=== PATIENT | male | born 1950 | race Caucasian/White ===

== ENCOUNTER → 2018-04-26 07:29 | Outpatient (CLI) | payer MEDICARE, OTHER, SELFPAY ==
[2018-04-26 09:41] LABS: Blood Urea Nitrogen 30 mg/dL (9-20); Calcium 9.3 mg/dL (8.4-10.2); Carbon Dioxide 24 mmol/L (22-32); Chloride 107 mmol/L (98-107); Estimated Glomerular Filt Rate > 60.0 mL/min (>60); Glucose 85 mg/dL (80-110); HEMOLYSIS < 15 (0-50); Potassium 4.3 mmol/L (3.4-5.1); Sodium 143 mmol/L (137-145)
[2018-04-26 11:43] LABS: Hemoglobin A1C% w Est Avg Glu 6.9 % (4.0-6.0)
== END ==
PROVIDERS: Family Provider Internal Medicine; PCP Internal Medicine; Visit Provider Internal Medicine
DX: E11.65 Type 2 diabetes mellitus with hyperglycemia (principal)
CPT/HCPCS: 36415; 80048; 83036

== ENCOUNTER → 2018-06-08 07:55 | Outpatient (CLI) | payer MEDICARE, OTHER, SELFPAY | PROVIDERS: Family Provider Internal Medicine; PCP Internal Medicine; Visit Provider Podiatrist | DX: Z01.818 Encounter for other preprocedural examination (principal) | CPT/HCPCS: 93005; 93010 ==

== ENCOUNTER 2018-06-18 14:07 | Day surgery (SDC) | payer MEDICARE, OTHER, SELFPAY ==
[2018-06-08 10:47] VITALS: BMI 28.7
[2018-06-18 14:26] VITALS: BP 155/79; PULSE 78; RESP 16; TEMP 36.8; O2SAT 99; BMI 28.7
[2018-06-18] MEDS: LACTATED RINGERS 1,000 ML 42 ML IV (14:47)
--- NOTE | 2018-06-18 15:54 | PM.PREOP ---
Pre-operative Note Interval Note Pre-op Check: Yes History & Physical Reviewed by Physician Changes: No
--- NOTE | 2018-06-18 16:31 | SUR.OPER ---
Supine on padded OR bed, head on pillow, arms secured on padded arm boards at <90 degrees abduction, right leg is under control of surgeon, left leg is taped over the blanket to the table; safety belt at thigh; bump under right hip.
[2018-06-18] MEDS: CEFAZOLIN 1 GM VIAL 2 GM IV (16:49)
[2018-06-18] MEDS: BUPIVACAINE 0.5% (PF) VIAL 30 ML INJ (16:51)
[2018-06-18] MEDS: LIDOCAINE 1% W/EPI INJ 4 ML INJ (16:52)
[2018-06-18 17:18] VITALS: BP 111/72; PULSE 82; RESP 14; TEMP 36.3; O2SAT 96
[2018-06-18 17:28] VITALS: BP 130/84; PULSE 71; RESP 14; O2SAT 98
--- NOTE | 2018-06-18 17:30 | P.OP_ITS ---
Operative Date/Time/Diagnoses Date of procedure: 06/18/18 Time of procedure: 17:24 Pre-op diagnosis: Right 2nd toe hardware bent , possible bone infection prominent 1st ray hardware Post-op diagnosis: same Procedure & Clinicians Procedure: Right 2nd toe hardware removal with right 2nd toe bone biopsy and right 1st metatarsal hardware removal x2 Same procedure as scheduled: Yes Surgeon: Zuleika Leigh Click Yes if Unassisted: Yes Anesthesia Type: MAC +/- Operative Notes Closure Type: primary Specimen(s): other (Bone biopsy 2nd toe distal phalanx) Estimated Blood Loss (mL): 10 Blood products transfused: none Procedure in detail: The patient was brought to the operating room and placed on the operative table in supine position. After induction of anesthesia the foot was prepped and draped in the usual aseptic manner the tourniquet was inflated. After checking for anesthesia and incision was made distally at the 2nd toe in the area of the prominent screw head. The screw head was immediately seen no purulent discharge or necrosis was noted. Using a forceps we were able to remove the screw in total. This was passed from the field. Bone biopsy was taken from the distal phalanx of the 2nd toe. The area was irrigated with copious amounts of normal sterile saline. Incision was made over the dorsal 1st metatarsal head. This was deepened through subcutaneous tissues being careful to identify and retract all vital neural and vascular structures. All bleeders were cauterized and ligated as necessary. Two prominent screw heads were noted and easily removed in total. These were passed from the table. The area was irrigated with copious amounts of normal sterile saline. The tourniquet was deflated and a prompt hyperemic response was seen to the foot. Subcutaneous closure on the 1st metatarsal head with Vicryl and nylon was used for the skin on both the 1st and 2nd. A sterile lightly compressive dressing was placed on the foot and use transferred the PACU with vital signs stable. Complications: none Condition: stable Disposition: PACU Plan for aftercare: Following a period of postoperative monitoring the patient be discharged home on written and oral postoperative instructions including keeping the dressing dry and intact avoiding significant ambulation to the foot , elevating the foot when seated at home. DVT prevention techniques have been reviewed.
== END 2018-06-18 17:41 | disposition home or self-care (01) ==
LOC: OR 14:07 → AC 14:09
PROVIDERS: Family Provider Internal Medicine; PCP Internal Medicine; Visit Provider Podiatrist
PROC: (CPT 20240; principal; 2018-06-18 15:15)
DX: T84.9XXA Unspecified complication of internal orthopedic prosthetic device, implant and graft, initial encounter (principal); E11.9 Type 2 diabetes mellitus without complications; Z79.84 Long term (current) use of oral hypoglycemic drugs
CPT/HCPCS: 20240; 20670; 20680; 87070; 87075; 87077; 87147; 87205; J0690; J2250; J2704; J3010

== ENCOUNTER → 2018-07-29 07:33 | Outpatient (CLI) | payer MEDICARE, OTHER, SELFPAY ==
[2018-07-29 09:16] LABS: Hemoglobin A1C% w Est Avg Glu 6.9 % (4.0-6.0)
[2018-07-29 09:53] LABS: BUN Creatinine Ratio 23.1 (6-22); Blood Urea Nitrogen 30 mg/dL (9-20); Calcium 9.5 mg/dL (8.4-10.2); Carbon Dioxide 27 mmol/L (22-32); Chloride 105 mmol/L (98-107); Estimated Glomerular Filt Rate 55.4 mL/min (>60); Glucose 141 mg/dL (80-110); HEMOLYSIS < 15 (0-50); Sodium 144 mmol/L (137-145)
== END ==
PROVIDERS: PCP Internal Medicine; Visit Provider Internal Medicine
DX: E11.65 Type 2 diabetes mellitus with hyperglycemia (principal)
CPT/HCPCS: 36415; 80048; 83036

== ENCOUNTER → 2019-01-27 07:23 | Outpatient (CLI) | payer MEDICARE, OTHER, SELFPAY ==
[2019-01-27 08:34] LABS: Hemoglobin A1C% w Est Avg Glu 7.3 % (4.0-6.0)
[2019-01-27 08:38] LABS: Alanine Aminotransferase 27 IU/L (21-72); Albumin 4.4 g/dL (3.5-5.0); Albumin Globulin Ratio 1.5 (1.0-2.8); Alkaline Phosphatase 88 U/L (38-126); Aspartate Aminotransferase 17 IU/L (17-59); Bilirubin Total 0.4 mg/dL (0.2-1.3); Blood Urea Nitrogen 28 mg/dL (9-20); Calcium 9.1 mg/dL (8.4-10.2); Carbon Dioxide 24 mmol/L (22-32); Chloride 106 mmol/L (98-107); Estimated Glomerular Filt Rate 50.7 mL/min (>60); Glucose 104 mg/dL (80-110); HEMOLYSIS < 15 (0-50); Potassium 4.7 mmol/L (3.4-5.1); Sodium 141 mmol/L (137-145); Total Protein 7.4 g/dL (6.3-8.2)
[2019-01-27 09:02] LABS: Prostate Specific Antigen Scrn 3.11 ng/mL (0.1-4.0)
== END ==
PROVIDERS: PCP Internal Medicine; Visit Provider Internal Medicine
DX: E11.9 Type 2 diabetes mellitus without complications (principal); E78.5 Hyperlipidemia, unspecified; Z12.5 Encounter for screening for malignant neoplasm of prostate
CPT/HCPCS: 80053; 83036; G0103

== ENCOUNTER 2019-04-18 06:31 | Day surgery (SDC) | payer MEDICARE, OTHER, SELFPAY ==
--- NOTE | 2019-04-18 | PATH_ITS ---
[facility] Accession Number: [id number] . 01 Material submitted: . PART A: colon - RIGHT COLON POLYP PART B: colon - LEFT COLON POLYP . 02 Diagnosis: A. Right Colon, Polyp: Tubular adenoma. . B. Left Colon, Polyp: Colonic mucosa with no diagnostic abnormality, consistent with polypoid redundancy. Negative for serrated lesion, dysplasia or malignancy. MRV/04/19/2019 . 02 Electronically signed: . Edil Aviles MD, PhD, Pathologist NPI- [id number] . 01 Gross description: . Part A: RIGHT COLON POLYP: Received in formalin is 1 fragment(s) of cobos, soft tissue measuring 0.3 x 0.2 x 0.2 cm which is entirely submitted and submitted entirely in 1 cassette(s) Part B: LEFT COLON POLYP: Received in formalin are 2 fragment(s) of cobos, soft tissue measuring 0.1 x 0.1 x 0.1 cm to 0.3 x 0.2 x 0.2 cm which is entirely submitted and submitted entirely in 1 cassette(s) /DMC /DMC . 02 Pathologist provided ICD-10: D12.6, K63.5 . 02 CPT . 616227, 666634 Performed at: 01 [facility] [address], [place], [place] [id number] MD German Lozada MD Phone: [phone] Performed at: 02 [facility] [address] [place], [place] [id number] MD Oxana Oropeza MD Phone: [phone]
[2019-04-18 07:11] VITALS: BMI 28.5
[2019-04-18 07:22] VITALS: BP 119/72; PULSE 102; RESP 16; TEMP 36.8; O2SAT 98
[2019-04-18] MEDS: SODIUM CHLORIDE 0.9% 1,000 ML 200 ML IV (07:27)
--- NOTE | 2019-04-18 07:28 | P.HP_ITS ---
History of Present Illness Date Patient Seen: 04/18/19 Time Patient Seen: 07:32 Chief complaint: [id number] Narrative: 68yo M referred for surveillance colonoscopy. Has history of polyps, none seen at last scope in 2003, however. Scope prior to that resulted in a perforation after a polypectomy and a surgery with partial colectomy per patient; the injury was in his cecum. Prior to that, he had had surgery for excision of a Meckel's and had a post op hemorrhage complication. Has had ortho surgeries with no bleeding issues but says he is prone to waking up during procedures. No family history of CRC and no concerning symptoms in patient. Patient History Medical History Type 2 diabetes mellitus without complication (Chronic) Essential hypertension (Chronic) Hyperlipidemia (Chronic) GERD (gastroesophageal reflux disease) (Chronic) Dorsalgia (Chronic) Type 2 diabetes mellitus with hyperglycemia (Chronic) H/O adenomatous polyp of colon (Inactive) Arthritis (Chronic) Chronic back pain (Chronic) Depression (Resolved) Peptic ulcer disease (Resolved) Surgical History Anesthesia (Inactive) H/O toe surgery (Inactive) S/P ACL reconstruction (Inactive) Status post appendectomy (Inactive) Status post cholecystectomy (Inactive) Status post colectomy (Inactive) Family History Father Diabetes mellitus Hypertension Mother Diabetes mellitus Social History marital status: number of children: 2 household members: spouse lives independently: Yes caregiver/support person: No housing: house pets and animals: Yes education level: other (Bachelors degree) occupational status: other (Retired) Previous occupational history: Aircraft inspecter travel history: recent ([place]) leisure activities: fishing and other ([place], collecting 100$ bill) Smoking Status: Never smoker Tobacco: How many years used: 0 quit status: quit date established (Never started) second hand exposure: Yes (Younger in life) alcohol intake: never substance use type: does not use Family & Social History Family History Father Diabetes mellitus Hypertension Mother Diabetes mellitus Social History: household members spouse lives independently Yes caregiver/support person No Tobacco & Substance use: Smoking Status Never smoker alcohol intake never Substance Use Type does not use Meds Home Medications Medication Instructions Recorded Confirmed Type Precision Xtra Test Strips #250 each 08/02/18 01/31/19 Rx aspirin 81 mg tablet,delayed 81 mg PO QDAY #90 tab 08/31/18 04/18/19 Rx release atorvastatin 20 mg tablet 20 mg PO QDAY #90 tab 08/31/18 04/18/19 Rx lisinopril 10 mg tablet 10 mg PO QDAY #90 tab 08/31/18 04/18/19 Rx metformin ER 1,000 mg 1,000 mg PO BID #180 tab 08/31/18 04/18/19 Rx tablet,extended release 24hr glipizide ER 5 mg tablet, extended 5 mg PO BID #180 tab 04/05/19 04/18/19 Rx release 24 hr Allergies Allergy/AdvReac Type Severity Reaction Status Date / Time metronidazole [METRONIDAZOLE] AdvReac Intermediate nausea Verified 04/18/19 07:09 Review of Systems Constitutional Constitutional: Reports as per HPI Exam Vital Signs (past 8 hours): - 04/18/19 07:22 Temperature 98.2 F Pulse Rate 102 H Respiratory Rate 16 Blood Pressure 119/72 Pulse Oximetry 98 Oxygen Delivery Method Room Air Narrative Exam Narrative: AAO, NAD, male of healthy weight EOMI, MMM, no scleral icterus unlabored RA soft, nt/nd MAEW visible skin dry and intact Assessment & Plan (1) Screening for colorectal cancer: Current visit: Yes Status: Acute Assessment & Plan narrative: - plan for surveillance colonoscopy --> all R/B/A discussed and pt wishes to proceed
[2019-04-18] MEDS: MIDAZOLAM 5 MG/5 ML VIAL IV (08:05)
[2019-04-18] MEDS: fentaNYL 250 MCG/5 ML INJ IV (08:05)
--- NOTE | 2019-04-18 08:13 | PM.OP.ENDO ---
Operative Date/Time/Diagnoses Date of procedure: 04/18/19 Time of procedure: 08:13 Pre-op diagnosis: History of colon polyps Post-op diagnosis: same Procedure & Clinicians Study performed: Surveillance Colonoscopy Same procedure as scheduled: Yes Indications: 68yo M with history of colon polyps, no family history or current symptoms. Did have a perforation at last scope so has delayed follow up. Surgeon: Yoli Hallman Procedure Notes SCOAP/Timeout: 743 Procedure in detail: After obtaining informed consent, the patient was brought to the GI suite and placed in the left lateral decubitus position on the examination table. After placement of appropriate monitors, the patient was given incremental doses of Versed and Fentanyl until an appropriate level of sedation was achieved. A time out was held per SCOAP protocol. A digital rectal examination was performed and did not reveal any masses or obstructing lesions. The colonoscope was gently passed into the patient's anus and the entire colon navigated to the level of the cecum with minimal difficulty. Prep was adequate. Once in the cecum, the scope was slowly withdrawn being sure to go before and beyond all mucosal folds and prominences as able to get a thorough examination. A tiny hyperplastic appearing polyp is noted in the right colon and is removed with cold forceps for biopsy. Another mass is noted in the left colon around 55cm, it is smooth and bulbous and appears submucosal rather than a polyp; it measures 1.5-2cm in diameter. Given the wide base and benign appearance, biopsies with cold forceps are taken. At the level of the rectal vault, the scope was retroflexed and the internal anal canal was examined. The scope was straightened and air aspirated from the colon. The instrument was removed from the patient's body and the procedure was concluded. The patient was allowed to awaken from sedation without difficulty and taken to the post-anesthesia care unit in good condition. Scope withdrawal time: 13 min Sedation minutes: 26 Findings: polyp Impression: 1. Right colon polyp- appears hyperplastic; biopsy sent 2. Left colon mass- appears benign, 1-2cm and smooth; biopsy sent Recommendations: Colonscopy in 5 years (pending path ) Follow up: weeks Disposition: PACU
[2019-04-18 08:17] VITALS: BP 116/75; PULSE 93; RESP 16; TEMP 36.3; O2SAT 99
[2019-04-18 08:28] VITALS: BP 111/75; PULSE 99; RESP 16; TEMP 36.7; O2SAT 95
--- NOTE | 2019-04-18 08:32 | SUR.PHASEII ---
Stable post op, awake on arrival so Phase 1 bypassed and pt went straight to phase 2.
--- NOTE | 2019-04-18 08:44 | SUR.PHASEII ---
Pt ready to go, dressed and left in stable condition.
== END 2019-04-18 08:45 | disposition home or self-care (01) ==
PROVIDERS: PCP Internal Medicine; Visit Provider Surgery
PROC: 0DJD8ZZ Inspection of Lower Intestinal Tract, Via Natural or Artificial Opening Endoscopic (ICD-10-PCS; CPT 45378; principal; 2019-04-18 07:45)
DX: Z86.010 Personal history of colon polyps (principal); E11.9 Type 2 diabetes mellitus without complications; I10 Essential (primary) hypertension; E78.5 Hyperlipidemia, unspecified; Z79.84 Long term (current) use of oral hypoglycemic drugs; D12.6 Benign neoplasm of colon, unspecified
CPT/HCPCS: 45380; 88305; 99152; J2250; J3010

== ENCOUNTER → 2019-04-28 07:45 | Outpatient (CLI) | payer MEDICARE, OTHER, SELFPAY ==
[2019-04-28 09:29] LABS: BUN Creatinine Ratio 20.8 (6-22); Blood Urea Nitrogen 27 mg/dL (9-20); Calcium 9.2 mg/dL (8.4-10.2); Carbon Dioxide 24 mmol/L (22-32); Chloride 109 mmol/L (98-107); Estimated Glomerular Filt Rate 55.2 mL/min (>60); Glucose 80 mg/dL (80-110); HEMOLYSIS < 15 (0-50); Potassium 5.1 mmol/L (3.4-5.1); Sodium 143 mmol/L (137-145)
== END ==
PROVIDERS: PCP Internal Medicine; Visit Provider Internal Medicine
DX: E11.65 Type 2 diabetes mellitus with hyperglycemia (principal)
CPT/HCPCS: 36415; 80048; 83036

== ENCOUNTER → 2019-06-08 13:00 | Outpatient (CLI) | payer MEDICARE, OTHER, SELFPAY ==
--- NOTE | 2019-06-08 | DI.MRI.S_ITS ---
PROCEDURE: MR LUMBAR SPINE WO CON INDICATIONS: LUMBAR SPINE PAIN TECHNIQUE: Noncontrast sagittal T1 spin echo and T2 fast echo, sagittal STIR, axial T1 and T2 fast spin echo through the lumbar spine. In cases with scoliosis, additional coronal T2 fast spin echo may be performed. COMPARISON: [facility], MR, L-SPINE WITHOUT CONTRAST, 03/15/2007, 7:09. FINDINGS: Image quality: Excellent. Alignment and Curvature: There is grade 1 anterolisthesis at the L5-S1 level. Associated bilateral pars defects are seen. Minimal retrolisthesis is seen at L2-L3, L4, and L4-L5. Bone Marrow: Marrow is of normal overall signal. Scattered foci are seen, which are hyperintense on T1-weighted and T2-weighted imaging, which are most consistent with benign vertebral body hemangiomas. No acute vertebral body compression fractures. Spinal Cord: Conus medullaris terminates at the T12-L1 level. Visualized cord demonstrates normal signal and size. Paraspinous Soft Tissues: No paravertebral masses. T12-L1: Normal appearance. L1-L2: Normal appearance. L2-L3: The disc height is well-preserved. Loss of disc signal is seen at this level. Mild to moderate disc bulge is seen. There is mild to moderate right-sided and mild left-sided neural foraminal narrowing seen. These imaging findings have progressed compared to the prior study. L3-L4: Mild loss of disc height is seen. Loss of disc signal is seen. Moderate disc bulge is seen, which is eccentric to the right. Mild to moderate facet hypertrophy is seen. Moderate bilateral neural foraminal narrowing is seen, right worse than left. Moderate central canal narrowing is seen. These imaging findings have progressed compared to the prior study. L4-L5: Moderate to severe loss of disc height and disc signal are seen. Reactive marrow endplate changes are seen, which demonstrate mixed T1 weighted and T2-weighted signal, and are attributed to a combination of edema and fatty metaplasia (Modic type I and Modic type II changes). Large prominent disc bulge is seen, which is eccentric to the left. There is at least moderate facet hypertrophy seen. Moderate to severe bilateral neural foraminal narrowing is seen, right worse than left. Moderate to severe central canal narrowing is seen at this level. These degenerative changes are mildly progressed compared to 2007. L5-S1: Moderate to severe loss of disc height and disc signal are seen. Moderate to prominent disc bulge is seen. Moderate to severe bilateral neural foraminal narrowing is seen, left worse than right, with associated nerve root impingement. Moderate central canal narrowing is seen. These degenerative changes are mildly progressed compared to 2007. IMPRESSION: Multiple levels of lumbar spine degenerative change are seen, which are most prominent at the L5-S1 level. The degenerative changes have progressed compared to 2007. Dictated by: Ross Samuels M.D. on 06/08/2019 at 14:53 Approved by: Ross Samuels M.D. on 06/08/2019 at 14:58
== END ==
PROVIDERS: Family Provider Internal Medicine; PCP Internal Medicine; Visit Provider Orthopaedic Surgery Orthopaedic Surgery of the Spine
DX: M54.5 Low back pain (principal); M47.817 Spondylosis without myelopathy or radiculopathy, lumbosacral region; M47.816 Spondylosis without myelopathy or radiculopathy, lumbar region
CPT/HCPCS: 72148

== ENCOUNTER → 2019-06-09 11:21 | Outpatient (CLI) | payer MEDICARE, OTHER, SELFPAY ==
--- NOTE | 2019-06-09 11:25 | DI.RAD.S_ITS ---
PROCEDURE: XR WRIST RT MIN 3V INDICATIONS: right wrist pain TECHNIQUE: 4 views of the wrist were acquired. COMPARISON: None. FINDINGS: Bones: No fractures or dislocations. No suspicious bony lesions. There are mild degenerative changes at the right first interphalangeal joint, right first metacarpal phalangeal joint, and right radiocarpal joint. There are moderate degenerative changes of the the right first carpometacarpal joint and the right rnuadyyr-wqrvbtnob-qwvlvbipf (STT) joint. Scaphoid view: Scaphoid appears intact. Soft tissues: No suspicious soft tissue calcifications. IMPRESSION: Mild/moderate degenerative changes of the right wrist as described above. No acute fracture or dislocation of the right wrist identified. Dictated by: Lopez Kendrick M.D. on 06/09/2019 at 12:08 Approved by: Lopez Kendrick M.D. on 06/09/2019 at 12:11
== END ==
PROVIDERS: PCP Internal Medicine; Visit Provider Internal Medicine
DX: M25.531 Pain in right wrist (principal)
CPT/HCPCS: 73110

== ENCOUNTER → 2019-07-21 09:05 | Outpatient (CLI) | payer MEDICARE, OTHER, SELFPAY ==
[2019-07-21 10:28] LABS: Hematocrit 36.9 % (41-53); Hemoglobin 12.6 g/dL (13.5-17.5); Mean Corpuscular HGB Conc 34.1 % (30-36); Mean Corpuscular Hemoglobin 30.7 PG (26-34); Mean Corpuscular Volume 89.9 fL (80-100); Platelet Count 209 X10^3/uL (150-400); Red Cell Distribution Width 13.5 % (11.6-14.8); White Blood Cell Count 6.2 X10^3/uL (4.5-11.0)
[2019-07-21 10:33] LABS: Add Manual Diff / Slide Review YES
[2019-07-21 10:42] LABS: Hemoglobin A1C% w Est Avg Glu 8.5 % (4.0-6.0)
[2019-07-21 10:45] LABS: BUN Creatinine Ratio 22.1 (6-22); Blood Urea Nitrogen 31 mg/dL (9-20); Calcium 9.7 mg/dL (8.4-10.2); Carbon Dioxide 24 mmol/L (22-32); Chloride 105 mmol/L (98-107); Estimated Glomerular Filt Rate 50.7 mL/min (>60); Glucose 128 mg/dL (80-110); HEMOLYSIS < 15 (0-50); Sodium 141 mmol/L (137-145)
[2019-07-21 10:53] LABS: Neutrophils Absolute Manual 3348 /uL (3000-5900); Total Cells Counted 100
[2019-07-21 10:54] LABS: RBC Morphology Normal Morphology
[2019-07-21 11:11] LABS: Potassium 5.5 mmol/L (3.4-5.1)
== END ==
PROVIDERS: PCP Internal Medicine; Visit Provider Orthopaedic Surgery Orthopaedic Surgery of the Spine
DX: R73.9 Hyperglycemia, unspecified (principal); Z01.818 Encounter for other preprocedural examination
CPT/HCPCS: 36415; 80048; 83036; 85025; 93005

== ENCOUNTER → 2019-08-09 07:47 | Outpatient (CLI) | payer MEDICARE, OTHER, SELFPAY ==
[2019-08-09 08:49] LABS: Add Manual Diff / Slide Review NO; Basophils Absolute Auto 0 /uL (0-100); Basophils Percent Auto 0.6 % (0-2); Eosinophils Absolute Auto 200 /uL (0-450); Eosinophils Percent Auto 3.4 % (2-4); Hematocrit 37.1 % (41-53); Hemoglobin 12.6 g/dL (13.5-17.5); Lymphocytes Absolute Auto 2000 /uL (1100-4500); Lymphocytes Percent Auto 28.4 % (25-40); Mean Corpuscular Hemoglobin 30.8 PG (26-34); Mean Corpuscular Volume 90.5 fL (80-100); Monocytes Absolute Auto 700 /uL (0-900); Monocytes Percent Auto 9.6 % (3-14); Neutrophils Absolute Auto 4000 /uL (1500-7000); Platelet Count 229 X10^3/uL (150-400); Red Cell Distribution Width 13.7 % (11.6-14.8); White Blood Cell Count 6.9 X10^3/uL (4.5-11.0)
[2019-08-09 09:15] LABS: BUN Creatinine Ratio 27.1 (6-22); Blood Urea Nitrogen 38 mg/dL (9-20); Calcium 9.2 mg/dL (8.4-10.2); Carbon Dioxide 22 mmol/L (22-32); Chloride 107 mmol/L (98-107); Estimated Glomerular Filt Rate 50.7 mL/min (>60); Glucose 89 mg/dL (80-110); HEMOLYSIS < 15 (0-50); Potassium 4.6 mmol/L (3.4-5.1); Sodium 141 mmol/L (137-145)
[2019-08-09 09:40] LABS: Hemoglobin A1C% w Est Avg Glu 8.1 % (4.0-6.0)
== END ==
PROVIDERS: PCP Internal Medicine; Visit Provider Orthopaedic Surgery Orthopaedic Surgery of the Spine
DX: Z01.818 Encounter for other preprocedural examination (principal)
CPT/HCPCS: 36415; 80048; 83036; 85025

== ENCOUNTER 2019-08-15 06:06 | Inpatient (IN) | payer MEDICARE, OTHER, SELFPAY ==
[2019-08-03 08:55] VITALS: BMI 28.4
[2019-08-15] VITALS (16 sets, daily range): BP systolic 92–144; BP diastolic 44–82; PULSE 60–111; RESP 10–21; TEMP 35.7–36.8; O2SAT 94–99; BMI 27.5
--- NOTE | 2019-08-15 | DI.RAD.S_ITS ---
PROCEDURE: XR LUMBAR SPINE 2-3V INDICATIONS: L4-5, L5-S1 TLIF TECHNIQUE: 2 intraoperative fluoroscopic views of the lumbar spine were acquired. COMPARISON: None. FINDINGS: Spot fluoroscopic images demonstrate a posterior fixation and discectomy from L4-S1. IMPRESSION: Spot fluoroscopic images of the lumbosacral spine fusion. Dictated by: Zulema Calixto M.D. on 08/15/2019 at 12:25 Approved by: Zulema Calixto M.D. on 08/15/2019 at 12:54
--- NOTE | 2019-08-15 07:39 | PM.PREOP ---
Pre-operative Note Interval Note History & Physical reviewed/Exam performed by Physician: Yes Changes to H&P: No
[2019-08-15] MEDS: CEFAZOLIN 2 GM/100 ML FROZ.PIGGY IV ×2 (08:10→16:47)
[2019-08-15] MEDS: LACTATED RINGERS 1,000 ML 42 ML IV ×2 (08:13→10:55)
--- NOTE | 2019-08-15 08:41 | SUR.OPER ---
Prone on spine table, head in foam head support, padded chest and pelvic supports, gel pad at knees, lower legs supported by pillows; nipples, genitalia and toes free of pressure, arms secured on foam padded arm boards at <90 degrees abduction. Tape over blanket at thigh secured to table.
[2019-08-15] MEDS: BUPIVACAINE 0.25% W/ EPI 30 ML VIAL INJ (08:48)
[2019-08-15] MEDS: BUPIVACAINE LIPOSOME 266 MG/20 ML VIAL INJ (08:49)
[2019-08-15] MEDS: ACETAMINOPHEN IV 1,000 MG/100 ML VIAL 400 MG IV (11:28)
--- NOTE | 2019-08-15 11:53 | P.OP_ITS ---
Operative Date/Time/Diagnoses Date of procedure: 08/15/19 Time of procedure: 07:53 Pre-op diagnosis: 1. L4-5, L5-S1 spondylolisthesis 2. L4-5, L5-S1 spinal stenosis Post-op diagnosis: same Procedure & Clinicians Procedure: 1. L4-5, L5-S1 Postero-lateral and posterior interbody fusion 2. L4-5, L5-S1 interbody cage placement. 3. L4-5, L5-S1 decompressive laminectomy with bilateral facetecomies 4. L4-5, L5-S1 Posterior segmental instrumentation 5. [place] of bone marrow from iliac crest 6. Utilization of microsurgical technique and operating microscope Same procedure as scheduled: Yes Indications: Patient has been having chronic back pain and worsening lumbar radiculopathy. Patient failed multiple conservative management with worsening pain weakness and numbness in her lower extremity. Patient has been having difficulty performing activity of daily living. After discussing risks benefits of treatment options, patient elected proceed with surgery. Surgeon: Ama Merlos Friction Paint Machine Tender: Maria Luz Roberson'Brien Click Yes if Unassisted: No Anesthesia Type: General Operative Notes Closure Type: primary Specimen(s): none sent Prosthetic devices, grafts, tissues, transplants, or devices: Globus revolve screws, Rise cages Applied: catheter Estimated Blood Loss (mL): 50 Blood products transfused: none Procedure in detail: Patient was seen in the preoperative area. Risks and benefits of the surgery was discussed with the patient. Informed consent was obtained from the patient and placed in the chart. Surgical site was marked. Patient was taken to the operative room. General anesthesia was administered. Prophylactic antibiotic was given to the patient less than 30 min before the incision was made. Patient was placed into a prone position on the Justin table. Patient's back was then prepped and draped in the sterile fashion. Time- out was performed at this time. Using AP and lateral C-arm imaging the interval between L4-S1 was identified and marked on patient's back. A 2 inch incision 2 in from midline was made on the left side first. The fascia was incised in line with skin incision. Globus MARS retractors was placed inside the incision and docked onto the L4 and L5 lamina. Using microsurgical technique and operating microscope, a L4 and L5 laminectomy and L4-5 L5-S1 facetectomy was performed using a Kerrison rongeur. During the process of decompression more than 75% of bilateral L4-5 L5-S1 facets were removed in order to decompress the spinal canal and the lateral recess. The L4- 5 L5-S1 level was grossly unstable after the decompression was completed and requiring the fusion procedure. Patient was found have severe central and foramen stenosis at both levels which were fully decompressed after the laminectomy and facetectomy was completed. The disc space at L4-5, L5-S1 was identified. And a total diskectomy was performed at L4-5, L5-S1 level. The endplates were decorticated using a rasp and shaver. The total diskectomy and decortication was performed at L4-5, L5-S1 level in order to to accomplish a L4- 5, L5-S1 fusion. The local bone from the laminectomy and facetectomy was saved for local bone grafting. After the total diskectomy and decortication was completed, Bio4 bone graft material was combined with local bone that was harvested earlier. At this time, a separate skin is incision was made over the iliac crest. A Jamshidi needle was inserted into the iliac crest through a separate skin incision. 5 cc of bone marrow aspiration was obtained through the separate skin incision using a Jamshidi needle from the iliac crest. The bone marrow aspiration was combined with local bone and the Bio4 bone grafting material. The bone grafting material was placed into the L4-5, L5-S1 interbody space along with two cages, one expandable cage at each level. The cages were expanded to their maximum height using the torque limiting screwdriver. At this time a mirror image incision was made on the right side. The fascia was incised in line with the skin incision. Globus MARS retractor was inserted and docked onto the L4-5, L5-S1 posterolateral gutter. Using the power drill, posterior-lateral decortication was performed at L4-5, L5-S1 level until bleedin g cortical bone was identified. The remaining bone grafting material was placed into the L4-5 L5-S1 posterior lateral gutter he order to accomplish posterolateral fusion at the L4-5 L5-S1 levels. Using the double C-arm technique, pedicle screws were placed into the L4, L5, S1 pedicles bilaterally. This was done by placing the Jamshidi needle into the pedicles, then placing the guidewires over the Jamshidi needle, and finally placing the cannulated screws over the guidewires bilaterally. After the pedicle screws were placed, 2 titanium rods was locked into the heads of the pedicle screws using locking caps and torque limiting screwdriver. Total 6 pedicles screws were placed. Thread energy conservation specialist was used to reduce patient's spondylolisthesis at both levels a perfect reduction and good purchase was obtained on all levels. After all the hardware was placed, and confirmed with AP and lateral C-arm imaging, the wound was then irrigated with sterile normal saline and packed with Ray-Jalen gauze for 3 min to accomplish hemostasis. After the gauze was removed the deep fascia was closed with #1 Vicryl suture. The subcutaneous layer was closed with 2-0 Vicryl. The skin was closed with skin jim. Patient tolerated the procedure well. There were no complications. Complications: none Post-operative Condition: stable Disposition: PACU Plan for aftercare: Admit to inpatient hospital
[2019-08-15] MEDS: LORazepam 2 MG/ML INJ 0.5 MG IV (12:16)
[2019-08-15] MEDS: HYDROMORPHONE 2 MG INJ 0.5 MG IV (12:24)
--- NOTE | 2019-08-15 12:32 | SUR.PHASEI ---
Patient arrived in pACU restless, trying to turn to position of comfort. rx by Dr. Marquez x2 for pain. Back dressing CDI. Good strength displayed by moving freely in bed. Responds to voice, See Mar
--- NOTE | 2019-08-15 13:02 | SUR.PHASEI ---
report called to floor.
--- NOTE | 2019-08-15 13:21 | SUR.PHASEI ---
1307 Has declined PO intake several times, states that he's doing 'great'. Report was called to the floor and pt ready for transfer. Take to room 218, bed down and locked, call light within reach. Glasses to counter, clothing bad to closet. SCDs on. When AC nurse asked him how he was doing, he stated perfect. Also stated that he didn't need anything more prior to my departure. VSS. Stable. flat affect, but responses are appropriate.
[2019-08-15] MEDS: HYDROMORPHONE 1 MG INJ 0.5 MG IV (14:19)
[2019-08-15] MEDS: SODIUM CHLORIDE 0.9% 1,000 ML 100 ML IV (14:19)
--- NOTE | 2019-08-15 14:26 | PC.NURSE ---
Patient axox3, vss, dressing intact to back. Moving all extremities. IV fluids infusing as ordered. Denies n/v, but declines food or drinks at this time. Sipping on water. Patient sleepy but easily arousable, medicated with dialudid 0.5mg IV as ordered for 9/10 surgical site incision pain. Isbell in place draining clear yellow urine. call light within reach.
[2019-08-15] MEDS: OXYCODONE IR 5 MG TABLET 10 MG PO ×3 (16:44→22:32)
[2019-08-15] MEDS: HYDROMORPHONE 0.5 MG INJ IV (17:05)
[2019-08-15] MEDS: DOCUSATE 100 MG CAPSULE PO (19:53)
[2019-08-15] MEDS: SENNOSIDES 8.6 MG TABLET 17.2 MG PO (19:53)
[2019-08-15] MEDS: glipiZIDE XL 5 MG TAB PO (19:53)
[2019-08-15] MEDS: METFORMIN XR 500 MG TABLET 1000 MG PO (19:53)
[2019-08-15] MEDS: hydrOXYzine pamoate 25 MG CAPSULE PO (22:32)
[2019-08-16] MEDS: CEFAZOLIN 2 GM/100 ML FROZ.PIGGY IV (00:05)
[2019-08-16] MEDS: SODIUM CHLORIDE 0.9% 1,000 ML 100 ML IV (00:05)
[2019-08-16] MEDS: HYDROMORPHONE 0.5 MG INJ IV ×3 (00:07→09:54)
[2019-08-16] MEDS: OXYCODONE IR 5 MG TABLET 10 MG PO ×3 (03:14→09:53)
[2019-08-16] MEDS: hydrOXYzine pamoate 25 MG CAPSULE PO ×2 (03:14→07:38)
[2019-08-16 03:19] VITALS: BP 146/56; PULSE 88; RESP 16; TEMP 37.3; O2SAT 96
[2019-08-16 05:55] LABS: Hematocrit 31.7 % (41-53)
[2019-08-16 07:45] VITALS: BP 137/70; PULSE 126; RESP 18; TEMP 37.9; O2SAT 95
[2019-08-16] MEDS: METFORMIN XR 500 MG TABLET 1000 MG PO ×2 (09:09→20:59)
[2019-08-16 09:10] VITALS: BP 137/70; PULSE 126
[2019-08-16] MEDS: LISINOPRIL 10 MG TABLET PO (09:10)
[2019-08-16] MEDS: ATORVASTATIN 20 MG TABLET PO (09:11)
[2019-08-16] MEDS: DOCUSATE 100 MG CAPSULE PO ×2 (09:11→20:57)
[2019-08-16] MEDS: glipiZIDE XL 5 MG TAB PO ×2 (09:11→20:59)
[2019-08-16] MEDS: SODIUM CHLORIDE 0.9% FLUSH 10 ML IV ×2 (09:20→20:59)
--- NOTE | 2019-08-16 09:42 | PC.NURSE ---
Addendum entered by Pam Bentley R.N. 08/16/19 14:31: pain 5/10, pt states is tolerable, did not want further PRn at this time. Talked with pt about staying ahead of pain and maybe having Q4 hr intervals instead and to report to staff his pain level. Urinary catheter removed at 1430 without difficulty, pt agreed with removal. Addendum entered by Pam Bentley R.N. 08/16/19 12:51: Around 1215, JOSEP Mandel updated also with HR tachycardia in the one teens up to 126. And Temp this AM 100.3 and reassessment was 99.8. Pain now 6/10. Addendum entered by Pam Bentley R.N. 08/16/19 11:51: Dilaudid 4mg po prn given at 1125 and IV Decadron 6mg X1 dose at 1135. Update given to JOSEP Mandel around 1146. PA will see pt around 1200. Addendum entered by Pam Bentley R.N. 08/16/19 11:21: No response from fax, Another RN had called Ortho office with no response. Called to surgery, Dr. Sanchez and Dr. Mar currently in surgery with PA's. Around 1115, Called JOSEP Nieto, currently in clinic. Pain management discussed, new orders rec'd. Original Note: Day Shift- Pt reported 10/10 deep aching to lower back around incision site. Lower back dressing CDI, no redness exceeding dressing. Denies nausea. Pain management plan discussed. PRN Vistaril and IV Dilaudid given at 0745 with little effect. pain decreased to 9/10. Pt turning himself in bed from side to side, reminded of log rolling, no twisting at waist, and placing a pillow between legs while on his side. Offered pt to reposition into a chair and pt wanted to try. 1 PA using walker and gait belt, pt reminded of slow to rise movement. Ambulated from bed to window, did a small loop and then settled into chair with call light. Attempted ice behind lower back and pt did not like, ice pack removed, pillow placed behind mid and upper back and head. BLE elevated on pillows. IVF D/C per order, pt tolerating food and fluids. Fax sent to Surgery at [phone] regarding changing pain management plan.
[2019-08-16] MEDS: ACETAMINOPHEN 325 MG TABLET 650 MG PO ×2 (09:54→16:49)
[2019-08-16] MEDS: HYDROMORPHONE 4 MG TABLET PO ×2 (11:26→16:49)
[2019-08-16] MEDS: DEXAMETHASONE 10 MG/ML VIAL 6 MG IV (11:36)
[2019-08-16 12:00] VITALS: BP 101/51; PULSE 116; RESP 18; TEMP 37.7; O2SAT 96
--- NOTE | 2019-08-16 13:41 | PT.IIE ---
Current Diagnoses Spondylolisthesis, lumbosacral region (08/15/19) Spinal stenosis, lumbar region with neurogenic claudication (08/15/19) Surgery Performed Operation Date: 08/15/19 07:45 Actual Procedures p L4-5, L5-S1 TLIF with posterior instrumentation(Not Applicable) - Ama Merlos MD Surgical History (Last Updated 08/03/19 @ 09:11 by Rica Knapp RN) Anesthesia (Inactive) H/O toe surgery (Inactive) S/P ACL reconstruction (Inactive) Status post appendectomy (Inactive) Status post cholecystectomy (Inactive) Status post colectomy (Inactive) Medical History (Last Reviewed 04/18/19 @ 07:27 by Yoli Hallman MD) Arthritis (Chronic) Chronic back pain (Chronic) Depression (Resolved) Dorsalgia (Chronic) Essential hypertension (Chronic) GERD (gastroesophageal reflux disease) (Chronic) H/O adenomatous polyp of colon (Inactive) Hyperlipidemia (Chronic) Peptic ulcer disease (Resolved) Type 2 diabetes mellitus with hyperglycemia (Chronic) Physical Therapy Inpatient Evaluation/Re-Eval M1 PT/OT-IP Prior Functional Status Start: 08/16/19 08:57 Freq: NEEDED Status: Active Protocol: Document 08/16/19 13:09 AW (Rec: 08/16/19 13:41 AW [id number]) Medical Review Prior Functional Status Medical History Reviewed Yes Diet/Fluid Consistency Regular Communication Able to make needs known Mobility and Gait Pt was mod independent with single point cane, limited in ambulation distance due to pain. Activities of Daily Living and IADL's Independent Social History Household Members spouse Living Arrangements House Number of Floors (Floors) One Floor Number of Stairs To Enter/Railing? 2 HERIBERTO without rail. Indoors: 2 steps down to bedroom without rail. 2 steps down to living room without rail. Patient able to use guest room with level entrance if needed. Home Environment Standard Height Toilet Home Equipment Four Wheel Walker,Straight Cane,Shower Seat without Backrest,Hand Held Shower Employment Status Retired Additional Social History Comment Pt lives with his spouse who is able to provide light assist as needed. M2 PT-IP Current Condition Start: 08/16/19 08:57 Freq: NEEDED Status: Active Protocol: Document 08/16/19 13:09 AW (Rec: 08/16/19 13:41 AW [id number]) Physical Therapy Current Condition Current Condition Evaluation Date 08/16/19 Treatment Diagnosis s/p L4-L5/L5-S1 TLIF, impaired mobility Onset Date 08/15/19 Precautions Lumbar Precautions Log Roll,No Twisting,Limit Bending,Lifting Restriction of 10 lbs,Gait Belt above Incisional Area Weight Bearing Status Weight Bearing Status Full Weight Bearing M3 PT-IP Subjective Start: 08/16/19 08:57 Freq: NEEDED Status: Active Protocol: Document 08/16/19 13:09 AW (Rec: 08/16/19 13:41 AW [id number]) Subjective Physical Therapy Visit Type Visit Start Time 12:40 Visit Stop Time 13:06 Total Visit Minutes 26 Number of DIE MAKER APPRENTICE Visits 0 Physical Therapy Visit Comments Patient Comments Pt has 6/10 pain but has been looking forward to getting up. Patient Goals Pt wants to discharge home with his Therapy Pain Assessment Pain When Pain Assessed During Mobility Pain Present Pain Present Pain Reported Location right thumb/forearm Intensity 6 Scale Used Numeric (1 - 10) Description Burning Pain Management Techniques Timing of Activity with Medications lower back Intensity 6 Scale Used 6/10 at rest; no increase with mobility Pain Management Techniques Apply Cold,Re-positioning, Timing of Activity with Medications M4 PT-IP Mobility and Gait Start: 08/16/19 08:57 Freq: NEEDED Status: Active Protocol: Document 08/16/19 13:09 AW (Rec: 08/16/19 13:41 AW [id number]) PT-Bed Mobility Assessment Rolling Type of Rolling Log Rolling Level of Assist Contact Guard Assistance Supine to Sit Supine to Sit Contact Guard Assistance Scooting Scooting to Edge of Bed Standby Assistance PT-Transfer Assessment Sit to and From Stand Sit to and from Stand Contact Guard Assistance Equipment Transfer Assistive Device Bed Rail,Front Wheeled Walker Orthotic/Prosthetic Devices or Brace: No Transfers Transfer Destination Chair Transfer Technique pt ambulated with FWW Transfer Ability Level of Assist Contact Guard Assistance Comments Mobility Comments Pt presents as drowsy as a result of pain medication, necessitating increased level of assist. Gait Assessment Gait Gait Assistance Required: Standby Assistance,Contact Guard Assist Distance (Feet) 200 Able to Maintain Weight Bearing Status Yes During Gait Assistive Devices Assistive Device Gait Belt,Front Wheeled Walker Orthotic/Prosthetic Devices or Brace: No Gait Deviations General Gait Pattern Antalgic,Decreased Feet Clearance,Flexed Trunk Factors Limiting Gait Function Factors Limiting Gait Function Decreased Activity Tolerance, Decreased Sensation,Decreased Strength,Pain,Poor Safety Awareness Comments Gait Comments Pt ambulated using FWW CGA/SBA and frequent cues for hip extension to correct flexed posture. With increased distance, pt's alertness increased, allowing for decreased level of assist (SBA vs CGA). PT-Balance Assessment Sitting Balance and Reactions Static Sitting Balance Ability Good Dynamic Sitting Balance Ability Good Standing Balance and Reactions Static Standing Balance Ability Good Dynamic Standing Balance Ability Good Device Used FWW M5 PT-IP Objective Assessments Start: 08/16/19 08:57 Freq: NEEDED Status: Active Protocol: Document 08/16/19 13:09 AW (Rec: 08/16/19 13:41 AW [id number]) Orientation Orientation/Cognition Level of Alertness Confusional State Orientation Name,Month,Place,Situation Safety Awareness Decreased Safety Awareness Memory Description No Deficits Noted Comments Decreased safety awareness secondary to mental state affected by pain meds. Gross Range of Motion Upper Extremity ROM Assessment Left Impaired Impairments limited shoulder flexion secondary to remote grade 3 separation Lower Extremity ROM Assessment Within Functional Limits Strength Upper Extremity Strength Assessment Within Functional Limits Lower Extremity Strength Assessment Within Functional Limits Coordination Assessment Gross Coordination Gross Coordination WNL Sensation Assessment Sensation Gross Sensation Right LE Impaired,Left LE Impaired Light Touch Impaired Sensation Description Numbness Comments Sensation Comments Right foot dorsal and plantar surfaces with decreased light touch sensation. M6 PT-IP Treatment Start: 08/16/19 08:57 Freq: NEEDED Status: Active Protocol: Document 08/16/19 13:09 AW (Rec: 08/16/19 13:41 AW [id number]) Physical Therapy Treatment Education Education Provided Precautions,Weight Bearing Status,Post-Op Packet,Safety M7 PT-IP Assessment and Plan Start: 08/16/19 08:57 Freq: NEEDED Status: Active Protocol: Document 08/16/19 13:09 AW (Rec: 08/16/19 13:41 AW [id number]) PT Summary Assessment and Plan Potential Rehabilitation Potential Good Status of Condition at Evaluation Evolving Summary Impairments Pain,Balance,Sensation,Bed Mobility,Transfers,Gait, Activity Tolerance Assessment Summary Pt is a 69 yo man seen on POD1 following L4-L5, L5-S1 TLIF. PLOF: Pt was mod independent with use of SPC for all mobility with limits to ambulation distance due to pain. He was independent with all ADL's. CLOF: Pt required CGA/SBA for all mobility. CGA required due to pain and waning alertness; decreased need for assist as alertness increased. He will be safe to discharge home with spouse assist and outpatient PT when pain is better controlled and he is cleared medically. Goals Bed Mobility Goal Standby Assistance Transfer Goal Independent,Standby Assistance Gait Goal Standby Assistance,Front Wheel Walker Gait Distance 300 Other Goals up/down 2 steps SBA with no railing. Days to Meet Goals 2 Frequency of Treatment Frequency Of Treatment Twice a Day Treatment Plan Physical Therapy Treatment Plan Bed Mobility Training,Transfer Training,Gait Training, Therapeutic Exercise,Balance Retraining,Post Op Education, Discharge Planning,Hot or Cold Pack,Neuromuscular Re-ed, Coordination Retraining,Manual Therapy Other Recommendations and Next Treatment stairs Focus Recommendations To Nursing Amount of Assist Needed Standby Assistance,1 Person Assist Discharge Recommendations PT Discharge Recommendations Home with Assistance, Outpatient PT
--- NOTE | 2019-08-16 15:30 | CM.DANOTE ---
Addendum entered by Viviane Sanchez R.N. 08/17/19 10:44: CM met with patient to finish D/C assessment: ENR reviewed. Patient is a 69 yr old male who lives at home with his Terri and adult children that live near by. Patient is I with ADL's at baseline and plans to D/C home with support from and adult children. D/c plan: is to D/C home with family support when medically stable. Patient has F/u appointment with MD on Thursday08/21/2019 and will disscuss OP PT with them at that time. No identified D/C Planning needs noted at this time. Viviane Sanchez RN Original Note: DCP/Brief Assessment: Reviewed chart. Patient admitted for spinal surgery performed by Dr. Merlos on 08-15-19. PCP listed is Dr. Wade. Primary payor 1)Medicare 2)[employer]. Attempted to meet with patient this AM. RN/Jose Manuel reports that patient having difficulty with pain today. RN requesting that WORM FARMER return at a later time. Therapy evaluation pending. P: CM team to follow up with patient for d/c planning needs. Anticipate home when stable. ERIC Arana Discharge Planning/Care Management Discharge Assessment Start: 08/16/19 15:26 Freq: Status: Active Protocol: Document 08/16/19 15:27 KJS (Rec: 08/16/19 15:29 KJS [id number]) Discharge Planning Assessment Assigned Equalizer Operator ERIC Arana Contact Information Terri Adhikari (spouse) Advance Directives? Yes Advance Directives on File No History Provided By Patient,Medical Record Prior Living Arrangements House Household Members spouse Type of transporation used prior to Drives own vehicle admit Independent with ADL's Yes Is patient alert and oriented? Currently unable to access due to pain issues Caregiver for Another No Comment Unsure at this time Discharge Plan Home Transportation Arrangement Family Whiteboard Updated in Patient Room with No name and ext. # of Equalizer Operator Review Status In Process Next Review Type Continued Stay Review Pre-Anesthesia Assessment Start: 08/03/19 08:55 Freq: Status: Complete Protocol: Document 08/03/19 08:55 CAB (Rec: 08/03/19 09:26 CAB [id number]) Pre-Anesthesia Assessment Patient Information Reviewed Via Phone Assessment Assessment Completed With Patient Diagnostic Results BMP/CMP,CBC,EKG,Other Comment Labs/EKG @ [facility] 07/21/19 Primary Care Provider Anupam Wade Seen Specialist in Last 12 Months Yes Specialist Seen Orthopedist Primary Language Marshallese Corporate Sales Manager Required No Height 180.34 cm Weight 92.533 kg Body Mass Index (BMI) 28.4 Hearing Ability Normal Visual Assist Glasses Dentition Type Teeth, Natural Present,Teeth, Missing Barriers to Learning None Other Aids No Hx Anesthesia Reactions Yes: I remember a lot during my surgeries, I was awake Hx Family Anesthesia Reaction No Hx Malignant Hyperthermia No Hx Blood Transfusions No Anesthesia Review Requested No alcohol intake never Smoking Status Never smoker Substance Use Type does not use Pain Present Pain Reported Musculoskeletal Symptoms Abnormal Gait,Back Pain, Difficulty Walking,Limited Range of Motion,Numbness, Radiating Pain into Limb, Tingling History of Falling (Recent or History of Yes ) Patient is completely paralyzed or No completely immobile Mental Status Oriented to own ability Is patient on oxygen? No Does patient have [place]/SOB No Hx Sleep Apnea No CPAP/BIPAP use not prescribed Currently Taking a Beta Harlan No Can You Climb a Flight of Stairs Without Yes SOB Hx Chest Pain No Hx SOB No Hx Syncope or Dizziness No Anti-Coagulant Therapy No Has a Art Teacher No Cardiac Testing No Hx Pacemaker/ICD No Pacemaker Rep Required? No Cardiac Clearance Received Not Applicable Diet Type At Home Diabetic dysphagia No Urinary Catheter Present No Hx Urinary Self Catheterization No Diabetes Yes HgbA1C 8.5 Date 07/21/19 Comment Last A1c 7.0% 04/28/19 Hx Drug Resistant Organism No Presence of External or Internal Medical Yes: Rt knee hardware; [employer] feet hardware Have you traveled outside the [facility] in the last 30 days? Comment Barbara travel 07/29-07/30 Marital Status Lives With spouse Prior Living Arrangements House Number of Floors (Floors) One Floor Support System Child/Children,Spouse Does the Patient Have Assistance After Yes Surgery Patient Discharge Plan Description Return Home Comment Pt advised 2 day length of stay per surgeon Feels Safe in Current Environment Yes Been Physically Hurt or Threatened By a No Person in Current Environment Do you have thoughts of harming yourself None or others? Are you currently considering suicide? No Do you have a plan to hurt yourself or No Plan others? Do You Have Any Spiritual Beliefs That No May Affect Your HC Choices? Do You Have Any Cultural Practices That No May Affect Your HC Choices? Who Can We Speak to About Patient's Care Family, friends Identifying Code for Release of Patient Declines to issue Information Health Care Proxy/Next of Kin Nicol () Health Care Proxy Emergency Contact Name Nicol () Emergency Contact Advance Directives? Yes Advance Directives on File No Requested Patient Bring Advanced Yes Directives DOS Power of Slitter Scorer Cut Off Operator Yes Power of Slitter Scorer Cut Off Operator Name Nicol Adhikari (spouse) Power of Slitter Scorer Cut Off Operator PAC Instructions Do not shave/clip surgical site,Durable medical equipment ,Medications to take/avoid, Nasal antibiotic,No ETOH/ petroleum product on skin DOS, NPO,Post-op transportation,Pre -surgical wash,Sturdy shoes/ comfortable clothes,Do not bring valuables and remove jewelry
[2019-08-16 16:00] VITALS: BP 114/60; PULSE 105; RESP 16; O2SAT 95
--- NOTE | 2019-08-16 16:42 | P.PN_ITS ---
Subjective Subjective Date Patient Seen: 08/16/19 Time Patient Seen: 12:00 Interval history: Post op day 1 s/p L4-5, L5-S1 TLIF. Patient had poorly controlled severe pain (10/10, lumbar, non radiating) overnight and in the AM. Pain was brought down to a 4-5/10 with dilaudid 4mg PO q3hr and decadron 6mg IV. Patient had chills overnight which resolved and is currently afebrile. Patient had difficulty ambulating with physical therapy secondary to pain. Patient void ing and eating. Urinary catheter was removed. Patient denies fever, nausea, vomiting, chest pain, shortness of breath, calf pain. Exam Vital Signs (past 8 hours): - 08/16/19 09:10 08/16/19 12:00 08/16/19 16:00 Temperature 99.8 F H Pulse Rate 126 H 116 H 105 H Respiratory Rate 18 16 Blood Pressure 137/70 101/51 L 114/60 Pulse Oximetry 96 95 Oxygen Delivery Method Room Air Oxygen Flow Rate 0 Narrative Exam Narrative: 69 year old male is laying in bed in mild distress. A&Ox3. Dressing is CDI. Lower back is non erythematous, non-edematous, no lesions or rashes. Patient is able to actively dorsiflex/plantar flex. Dorsalis pedis 2+ b/l. Capillary refill <2 seconds b/l. Objective Labs Result Diagrams: 08/16/19 05:25 Labs: Laboratory Results - last 24 hr 08/16/19 05:25 Hgb 11.0 L Hct 31.7 L Assessment & Plan Post-op Postoperative Procedures: Procedures Operation Date: 08/15/19 07:45 Actual Procedures Side Surgeon p L4-5, L5-S1 TLIF with posterior instrumentation Not Applicable Ama Merlos MD Postoperative status: marginal pain control Postoperative plan narrative: Post operative day 1 s/p L4-5, L5-S1 TLIF with Dr. Merlos Patient had poorly controlled pain overnight/AM and ambulated poorly with PT secondary to pain. Pain improved with dilaudid and decadron. Continue current pain management. Patient will ambulate with physical therapy tomorrow. Likely discharge tomorrow pending pain control and physical therapy. Time Spent With Patient Time with patient: less than 15 minutes Quality VTE Deep Vein Thrombosis/Pulmonary Embolism Present on Admission: No
--- NOTE | 2019-08-16 17:09 | OT.IP.EVAL ---
Current Diagnoses Spondylolisthesis, lumbosacral region (08/15/19) Spinal stenosis, lumbar region with neurogenic claudication (08/15/19) Surgery Performed Operation Date: 08/15/19 07:45 Actual Procedures p L4-5, L5-S1 TLIF with posterior instrumentation(Not Applicable) - Ama Merlos MD Past Medical History (Last Reviewed 04/18/19 @ 07:27 by Yoli Hallman MD) Arthritis (Chronic) Chronic back pain (Chronic) Depression (Resolved) Dorsalgia (Chronic) Essential hypertension (Chronic) GERD (gastroesophageal reflux disease) (Chronic) H/O adenomatous polyp of colon (Inactive) Hyperlipidemia (Chronic) Peptic ulcer disease (Resolved) Type 2 diabetes mellitus with hyperglycemia (Chronic) Surgical History (Last Updated 08/03/19 @ 09:11 by Rica Knapp RN) Anesthesia (Inactive) H/O toe surgery (Inactive) S/P ACL reconstruction (Inactive) Status post appendectomy (Inactive) Status post cholecystectomy (Inactive) Status post colectomy (Inactive) Occupational Therapy Inpatient Evaluation/Re-Eval M1 PT/OT-IP Prior Functional Status Start: 08/16/19 16:56 Freq: NEEDED Status: Active Protocol: Document 08/16/19 16:56 [facility] (Rec: 08/16/19 17:09 [facility] [id number]) Medical Review Prior Functional Status Medical History Reviewed Yes Diet/Fluid Consistency Regular Communication Able to make needs known Mobility and Gait Pt was mod independent with single point cane, limited in ambulation distance due to pain. Activities of Daily Living and IADL's Independent Social History Household Members spouse Living Arrangements House Number of Floors (Floors) One Floor Number of Stairs To Enter/Railing? 2 HERIBERTO without rail. Indoors: 2 steps down to bedroom without rail. 2 steps down to living room without rail. Patient able to use guest room with level entrance if needed. Home Environment Standard Height Toilet Home Equipment Four Wheel Walker,Straight Cane,Shower Seat without Backrest,Hand Held Shower Additional Social History Comment Pt lives with his spouse who is able to provide light assist as needed. M2 OT-IP Current Condition Start: 08/16/19 16:56 Freq: Status: Active Protocol: Document 08/16/19 16:56 [facility] (Rec: 08/16/19 17:09 [facility] [id number]) Occupational Therapy Current Condition Current Condition Evaluation Date 08/16/19 Treatment Diagnosis Ssp L4-5, L5-S1, TLIF post. instrument. Post Operative Precautions Lumbar Precautions Log Roll,No Twisting,Limit Bending,Lifting Restriction of 10 lbs,Gait Belt above Incisional Area Weight Bearing Status Weight Bearing Status Weight Bear as Tolerated M3 OT- IP Subjective and Pain Start: 08/16/19 16:56 Freq: Status: Active Protocol: Document 08/16/19 16:56 [facility] (Rec: 08/16/19 17:09 [facility] [id number]) OT- Subjective Occupational Therapy Visit Type Type Initial Evaluation Visit Start Time 16:08 Visit Stop Time 16:35 Total Visit Minutes 27 Occupational Therapy Visit Comments Patient Comments Pt agrreeable to get up. Patient/Caregiver Goals To go home when ready. OT Pain Assessment Pain When Pain Assessed At Rest Pain Present Pain Present Pain Reported Location right thumb/forearm Intensity 7 Scale Used Numeric (1 - 10) M4 OT- IP ADL's Start: 08/16/19 16:56 Freq: Status: Active Protocol: Document 08/16/19 16:56 [facility] (Rec: 08/16/19 17:09 [facility] [email or web address]) OT ADL-Grooming General Evaluation Grooming Ability Standby Assistance Areas Needing Assistance Retrieving/Set-up of Grooming Items Comments OT Grooming Comments Pt able to do all grooming needs while standing in front of sink with FWW. CGA for balance and vc to keep fww in front of him. OT ADL-Oral Care General Eval Oral Care Ability Independent OT ADL-Dressing General Eval Lower Body Dressing Ability Maximum Assistance Areas Needing Assistance Socks OT ADL-Toileting Comments OT Toileting Comments Pt not having to go but states leans to the side to wipe after a bowel movement. M6 OT- IP Functional Cognition Start: 08/16/19 16:56 Freq: Status: Active Protocol: Document 08/16/19 16:56 [facility] (Rec: 08/16/19 17:09 [facility] [id number]) Cognitive Factors Limiting Selfcare Function Cognitive Ability Level of Alertness Alert Patient Orientation Name,Place,Situation Attention Span Ability Capable of Focused Attention, Capable of Sustained Attention Ability to Follow Commands Able to Follow One Step Commands Memory Description Short Term Impaired Safety Awareness Decreased Recall of Precautions,Decreased Ability to Apply Precautions, Underestimates Need for Assistance Cognitive Comments Cognitive Assessment Comments Pt states a bit foggy and not able to recall back precautions. Pt states feels the medication is causing him to be groggy. OT- Vision and Hearing OT- Hearing Assessment OT- Hearing Assessment WFL OT- Vision Assessment Visual Acuity Glasses All The Time M7 OT- IP Mobility and Balance Start: 08/16/19 16:56 Freq: Status: Active Protocol: Document 08/16/19 16:56 [facility] (Rec: 08/16/19 17:09 [facility] [email or web address]) OT- Bed Mobility Assessment Rolling Type of Rolling Roll to Left Level of Assistance Moderate Assistance Supine to Sit Supine to Sit Assist Contact Guard Assistance, Bedrails Sit to Supine Sit to Supine Assist Minimal Assistance,Bedrails OT-Transfer Assessment Sit to and From Stand Sit to and from Stand Minimal/MOD Assistance Transfers Transfer Ability Contact Guard Assistance Technique Transfer Destination Bed,Chair Transfer Technique Stand Step Pivot Devices Transfer Assistive Devices Gait Belt,Front Wheeled Walker Comments Mobility Comments Poor transition from sit to stand and not able to straighten legs before trying to grab FWW, otherwise trying to press up with FWW to stand. MODA for safety ,ARIELLE to help lower to recliner. OT- Balance Assessment Sitting Balance and Reactions Static Sitting Balance Ability Good Standing Balance and Reactions Static Standing Balance Ability Fair M8 OT- IP Objective Assessments Start: 08/16/19 16:56 Freq: Status: Active Protocol: Document 08/16/19 16:56 [facility] (Rec: 08/16/19 17:09 [facility] [email or web address]) OT Gross Range of Motion Upper Extremity Range of Motion Assessment Left Impaired ROM Impairments Pt states due to old injuries from the does not have full AROM and strength for LUE. Pt has right hand brace on per pt due to fall recently. M9 OT- IP Assessment and Plan Start: 08/16/19 16:56 Freq: Status: Active Protocol: Document 08/16/19 16:56 [facility] (Rec: 08/16/19 17:09 [facility] [email or web address]) OT Summary Assessment and Plan Potential Rehabilitation Potential Good Analytic Complexity at Evaluation Low Summary OT Impairments Balance,Functional Cognition, Functional Mobility,Dressing, Toileting,Bathing,Toilet Transfers,Shower Transfers Progress Towards Goals Slow Progress due to Pain,Slow Progress due to Medical Issues,Slow Progress due to Cognition Assessment Summary Pt main barrier is steps and bed mobility and needing MODA to help rolling in bed and heavily relies on the grab bar to assist. Pt unable to lift , therefore pending progress and caregiver training, either home with assist or short skilled rehab stay. CONtinue to work with OT for safety with independence with OT needs. Goals Grooming Goal Independent Dressing Goal Standby Assistance Toileting Goal Standby Assistance Bathing Goal Minimal Assistance Toilet Transfer Goal Standby Assistance Shower Transfer Goal Standby Assistance Patient/Caregiver Education Goal Demonstrate Post-Op Precautions,Caregiver Independent Assisting Patient Days to Meet Goals 5 Frequency of Treatment Frequency Of Treatment Once a Day Treatment Plan OT Treatment Plan ADL Training,Functional Cognition Training,Functional Mobility,Patient/Family Education,Discharge Planning Other Treatment Recommendations and Next Pt's safety and independence Treatment Focus of transitions to stand from toilet and bed. Discharge Recommendations OT Discharge Recommendations Home with Assistance,SNF Rehab Other Discharge Recommendations Pending caregiver training , as unable to lift possible short skilled rehab versus home with assist.
[2019-08-16] MEDS: INFLUENZA VACCINE 0.5 ML SYRINGE IM (17:44)
[2019-08-16] MEDS: SENNOSIDES 8.6 MG TABLET 17.2 MG PO (20:57)
[2019-08-16 21:00] VITALS: BP 133/71; PULSE 97; RESP 16; TEMP 36.8; O2SAT 96
[2019-08-16] MEDS: HYDROMORPHONE 2 MG TABLET PO (22:59)
[2019-08-16] MEDS: hydrOXYzine pamoate 25 MG CAPSULE 50 MG PO (22:59)
[2019-08-17 00:22] VITALS: BP 106/46; PULSE 100; RESP 18; TEMP 36.8; O2SAT 95
[2019-08-17] MEDS: ACETAMINOPHEN 325 MG TABLET 650 MG PO ×3 (01:15→12:36)
[2019-08-17] MEDS: HYDROMORPHONE 4 MG TABLET PO ×3 (01:24→12:36)
[2019-08-17] MEDS: SODIUM CHLORIDE 0.9% FLUSH 10 ML IV ×2 (01:28→08:45)
[2019-08-17] MEDS: HYDROMORPHONE 2 MG TABLET PO (04:19)
[2019-08-17 04:45] VITALS: BP 97/55; PULSE 96; RESP 13; TEMP 36.6; O2SAT 98
[2019-08-17 08:15] VITALS: BP 95/48; PULSE 92; RESP 16; TEMP 36.7; O2SAT 99
[2019-08-17] MEDS: ATORVASTATIN 20 MG TABLET PO (08:45)
[2019-08-17] MEDS: DOCUSATE 100 MG CAPSULE PO (08:45)
[2019-08-17] MEDS: METFORMIN XR 500 MG TABLET 1000 MG PO (08:45)
--- NOTE | 2019-08-17 10:10 | P.DS_ITS ---
History of Present Illness History of Present Illness Date Patient Seen: 08/17/19 Time Patient Seen: 08:30 Chief complaint: [id number] Narrative: Patient has been having chronic back pain and worsening lumbar radiculopathy. Patient failed multiple conservative management with worsening pain weakness and numbness in her lower extremity. Patient has been having difficulty performing activity of daily living. After discussing risks benefits of treatment options, patient elected proceed with surgery. No acute events overnight. Patient has been ambulating with physical therapy. Pain is well managed with dilaudid and tylenol. Patient has no complaints. Denies fever, chills, nausea, vomiting, numbness, tingling, chest pain, short ness of breath, calf pain Discharge Providers Provider Date of admission: 08/15/19 06:06 Discharge Date: 08/17/19 Primary care physician: Anupam Wade MD Consults: 08/15/19 13:20 Consult to Occupational Therapy Evaluate & Treat Comment: Physician Instructions: Evaluate and treat Consult to Physical Therapy Evaluate & Treat Comment: Physician Instructions: Evaluate and Treat 08/15/19 13:21 Consult to Respiratory Therapy Evaluate & Treat Comment: Physician Instructions: Evaluate and treat Discharge provider: Vikcy Jimenez PA-C Summary Hospital Course Discharge Diagnosis: s/p TLIF Type 2 diabetes mellitus with hyperglycemia essential hypertension hyperlipidemia GERD Dorsalgia H/O adenomatous polyp of colon Hospital Course: Patient admitted to hospital s/p TLIF with Dr. Merlos. On post op day 2, patient was ready for discharge home. Hospital course was notable for poorly controlled pain control on POD#1. Pain was then managed with decadron and dialudid. Patient was ambulating with PT prior to discharge. patient eating and voiding without difficulty or assistance prior to discharge. Patient discharged home with dilaudid 4 mg q4-6h and tylenol. Status at Discharge Cognitive/behavioral status at discharge: oriented Functional status at discharge: uses cane/walker Overall status at discharge: patient is progressing back to baseline Time Spent with Patient Time spent: Less than 30 minutes Exam Vital Signs (past 8 hours): - 08/17/19 04:45 08/17/19 08:15 Temperature 98 F 98.1 F Pulse Rate 96 H 92 H Respiratory Rate 13 16 Blood Pressure 97/55 L 95/48 L Pulse Oximetry 98 99 Oxygen Delivery Method Room Air Oxygen Flow Rate 0 Narrative Exam Narrative: 69 year old male is laying comfortably in bed, in no apparent distress. A&Ox3. Dressing is CDI. Patient is able to actively dorsiflex/plantar flex. Sensory function grossly intact to light touch in LE b/l. Dorsalis pedis 2+ b/l. Capillary refill <2 seconds LE b/l Objective Labs Result Diagrams: 08/16/19 05:25 Discharge Plan Discharge Plan Patient Disposition: Home Discharge comment: discharge home Discharge Med Rec/Prescriptions Prescriptions: New acetaminophen [Tylenol Extra Strength] 500 mg tablet 500 mg PO Q4H PRN (Reason: pain) Qty: 60 RF: 0 hydromorphone [Dilaudid] 4 mg tablet 4 mg PO Q4-6H PRN (Reason: pain) Qty: 40 RF: 0 Continued lisinopril 10 mg tablet 10 mg PO QDAY Qty: 90 RF: 3 metformin 1,000 mg tablet extended release 24hr 1,000 mg PO BID Qty: 180 RF: 3 glipizide [Glucotrol XL] 5 mg tablet extended release 24hr 5 mg PO BID Qty: 180 RF: 3 (DME) Precision Xtra Test Strips Qty: 250 RF: 12 (DME) Disabled Parking Qty: 1 RF: 0 atorvastatin [Lipitor] 20 mg tablet 20 mg PO QAM RF: 0 Discontinued aspirin 81 mg tablet,delayed release (DR/EC) 81 mg PO QDAY Qty: 90 RF: 3 Follow up/Referrals: Ama Merlos MD [Physician] - Anupam Wade MD [Primary Care Provider] - Provider Discharge Instructions Diet: Carb-consistent/Diabetic Activity: weight bearing as tolerated. follow TLIF protocols Cold/Heat Therapy: continue cold/heat therapy as needed Skin/Wound/Dressing Care Report to your healthcare provider any signs of infection, such as:: chills, fever, increased pain, unusual drainage and unusual redness Dressing: keep dressing dry. if saturated contact office. Visit Report/Discharge Packet Instructions: How to Prevent Falls, DI for Postoperative Pain, DI for Transforaminal Lumbar Interbody Fusion Stand Alone Forms: Surgery Discharge Discharge Data Primary Care Provider: Anupam Wade Quality VTE Deep Vein Thrombosis/Pulmonary Embolism Present on Admission: No
--- NOTE | 2019-08-17 11:15 | PT.IPTN ---
Current Diagnoses Spondylolisthesis, lumbosacral region (08/15/19) Spinal stenosis, lumbar region with neurogenic claudication (08/15/19) Surgery Performed Operation Date: 08/15/19 07:45 Actual Procedures p L4-5, L5-S1 TLIF with posterior instrumentation(Not Applicable) - Ama Merlos MD Physical Therapy Treatment Note M2 PT-IP Current Condition Start: 08/16/19 08:57 Freq: NEEDED Status: Active Protocol: Document 08/16/19 13:09 [facility] (Rec: 08/16/19 13:41 AW [id number]) Physical Therapy Current Condition Current Condition Evaluation Date 08/16/19 Treatment Diagnosis s/p L4-L5/L5-S1 TLIF, impaired mobility Onset Date 08/15/19 Precautions Lumbar Precautions Log Roll,No Twisting,Limit Bending,Lifting Restriction of 10 lbs,Gait Belt above Incisional Area Weight Bearing Status Weight Bearing Status Full Weight Bearing M3 PT-IP Subjective Start: 08/16/19 08:57 Freq: NEEDED Status: Active Protocol: Document 08/17/19 11:15 [facility] (Rec: 08/17/19 12:16 [facility] [email or web address]) Subjective Physical Therapy Visit Type Type Treatment Note Visit Start Time 10:50 Visit Stop Time 11:16 Total Visit Minutes 26 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 Therapy Pain Assessment Pain When Pain Assessed During Mobility Pain Present Pain Present Pain Reported Location lower back Intensity 6 Scale Used Numeric (1 - 10) M4 PT-IP Mobility and Gait Start: 08/16/19 08:57 Freq: NEEDED Status: Active Protocol: Document 08/17/19 11:15 [facility] (Rec: 08/17/19 12:16 [facility] [email or web address]) PT-Bed Mobility Assessment Rolling Type of Rolling Log Rolling Level of Assist Contact Guard Assistance Supine to Sit Supine to Sit Contact Guard Assistance Scooting Scooting to Edge of Bed Standby Assistance PT-Transfer Assessment Sit to and From Stand Sit to and from Stand Contact Guard Assistance Equipment Transfer Assistive Device Gait Belt,Front Wheeled Walker Orthotic/Prosthetic Devices or Brace: No Transfers Transfer Destination Chair Transfer Technique pt ambulated with FWW Transfer Ability Level of Assist Contact Guard Assistance Gait Assessment Gait Gait Assistance Required: Standby Assistance,Contact Guard Assist Distance (Feet) 250 Able to Maintain Weight Bearing Status Yes During Gait Assistive Devices Assistive Device Gait Belt,Front Wheeled Walker Orthotic/Prosthetic Devices or Brace: No Gait Deviations General Gait Pattern Antalgic,Decreased Feet Clearance,Flexed Trunk Factors Limiting Gait Function Factors Limiting Gait Function Decreased Activity Tolerance, Decreased Sensation,Decreased Strength,Pain,Poor Safety Awareness Stair Climbing Assessment Evaluation Level of Assist On Stairs Contact Guard Assistance,1 Person Assistance Devices Stair Climbing Assistive Devices Straight Cane Technique/Endurance Stair Climbing Direction Ascend and Descend Stair Climbing Technique Step to Step Number of Steps Climbed 3 Stair Climbing Set # Repetitions (reps) 1 M5 PT-IP Objective Assessments Start: 08/16/19 08:57 Freq: NEEDED Status: Active Protocol: Document 08/16/19 13:09 [facility] (Rec: 08/16/19 13:41 AW [id number]) Orientation Orientation/Cognition Level of Alertness Confusional State Orientation Name,Month,Place,Situation Safety Awareness Decreased Safety Awareness Memory Description No Deficits Noted Comments Decreased safety awareness secondary to mental state affected by pain meds. Gross Range of Motion Upper Extremity ROM Assessment Left Impaired Impairments limited shoulder flexion secondary to remote grade 3 separation Lower Extremity ROM Assessment Within Functional Limits Strength Upper Extremity Strength Assessment Within Functional Limits Lower Extremity Strength Assessment Within Functional Limits Coordination Assessment Gross Coordination Gross Coordination WNL Sensation Assessment Sensation Gross Sensation Right LE Impaired,Left LE Impaired Light Touch Impaired Sensation Description Numbness Comments Sensation Comments Right foot dorsal and plantar surfaces with decreased light touch sensation. M6 PT-IP Treatment Start: 08/16/19 08:57 Freq: NEEDED Status: Active Protocol: Document 08/17/19 11:15 [facility] (Rec: 08/17/19 12:16 [facility] [email or web address]) Physical Therapy Treatment Education Education Provided Precautions,Safety M7 PT-IP Assessment and Plan Start: 08/16/19 08:57 Freq: NEEDED Status: Active Protocol: Document 08/17/19 11:15 [facility] (Rec: 08/17/19 12:16 [facility] [email or web address]) PT Summary Assessment and Plan Summary Assessment Summary Pt improving with mobility. He was safe with stair mobility with SPC and gait with FWW. Pt able to progress gait distance. Frequency of Treatment Frequency Of Treatment Twice a Day Treatment Plan Physical Therapy Treatment Plan Bed Mobility Training,Transfer Training,Gait Training, Therapeutic Exercise,Balance Retraining,Post Op Education, Discharge Planning,Hot or Cold Pack,Neuromuscular Re-ed, Coordination Retraining,Manual Therapy Recommendations To Nursing Amount of Assist Needed Standby Assistance,1 Person Assist Discharge Recommendations PT Discharge Recommendations Home with Assistance, Outpatient PT
[2019-08-17] MEDS: glipiZIDE XL 5 MG TAB PO (11:39)
[2019-08-17] MEDS: hydrOXYzine pamoate 25 MG CAPSULE 50 MG PO (11:42)
--- NOTE | 2019-08-17 12:08 | OT.IP.TRT ---
Current Diagnoses Spondylolisthesis, lumbosacral region (08/15/19) Spinal stenosis, lumbar region with neurogenic claudication (08/15/19) Surgery Performed Operation Date: 08/15/19 07:45 Actual Procedures p L4-5, L5-S1 TLIF with posterior instrumentation(Not Applicable) - Ama Merlos MD Occupational Therapy Treatment Note M2 OT-IP Current Condition Start: 08/16/19 16:56 Freq: Status: Active Protocol: Document 08/16/19 16:56 [facility] (Rec: 08/16/19 17:09 [facility] [email or web address]) Occupational Therapy Current Condition Current Condition Evaluation Date 08/16/19 Treatment Diagnosis Ssp L4-5, L5-S1, TLIF post. instrument. Post Operative Precautions Lumbar Precautions Log Roll,No Twisting,Limit Bending,Lifting Restriction of 10 lbs,Gait Belt above Incisional Area Weight Bearing Status Weight Bearing Status Weight Bear as Tolerated M3 OT- IP Subjective and Pain Start: 08/16/19 16:56 Freq: Status: Active Protocol: Document 08/17/19 12:06 [facility] (Rec: 08/17/19 12:07 [facility] [id number]) OT- Subjective Occupational Therapy Visit Type Type Patient Refusal Occupational Therapy Visit Comments Patient Comments Pt not wanting to do any OT at this time as focused on going home today.
--- NOTE | 2019-08-17 12:52 | PC.NURSE ---
Discharge Note: Pt with uneventful shift. Pain well controlled with dilaudid po 4 mg, vistaril and tylenol. Pt's dressing on lumbar spine changed to island barrier dressing per MD order. Bilateral incisions well-approximated with jim. Pt is alert and oriented, SB to independent assist for mobility. Pt discharged to private vehicle via wheelchair without incident.
== END 2019-08-17 12:40 | disposition home or self-care (01) | DRG 455 ==
PROVIDERS: Admitting Provider Orthopaedic Surgery Orthopaedic Surgery of the Spine; PCP Internal Medicine; Visit Provider Orthopaedic Surgery Orthopaedic Surgery of the Spine
PROC: 0SG00AJ Fusion of Lumbar Vertebral Joint with Interbody Fusion Device, Posterior Approach, Anterior Column, Open Approach (ICD-10-PCS; principal; 2019-08-15 07:45)
DX: M48.062 Spinal stenosis, lumbar region with neurogenic claudication (principal); M48.07 Spinal stenosis, lumbosacral region; M43.17 Spondylolisthesis, lumbosacral region; I10 Essential (primary) hypertension; E78.5 Hyperlipidemia, unspecified; K21.9 Gastro-esophageal reflux disease without esophagitis; E11.9 Type 2 diabetes mellitus without complications; Z79.84 Long term (current) use of oral hypoglycemic drugs; G89.18 Other acute postprocedural pain
CPT/HCPCS: 36415; 72100; 76000; 82962; 85014; 85018; 90471; 90656; 94760; 97116; 97161; 97165; 97530; C1776; C9290; J0131; J0690; J1100; J1170; J2060; J2250; J2704; J3010; Q2038

== ENCOUNTER → 2019-11-03 08:15 | Outpatient (CLI) | payer MEDICARE, OTHER, SELFPAY ==
[2019-08-15 13:36] VITALS: BMI 27.5
[2019-11-03 09:40] LABS: Hemoglobin A1C% w Est Avg Glu 7.7 % (4.0-6.0)
[2019-11-03 10:11] LABS: Alanine Aminotransferase 13 IU/L (<50); Albumin 4.3 g/dL (3.5-5.0); Albumin Globulin Ratio 1.5 (1.0-2.8); Alkaline Phosphatase 143 U/L (38-126); Aspartate Aminotransferase 13 IU/L (17-59); Bilirubin Total 0.3 mg/dL (0.2-1.3); Blood Urea Nitrogen 28 mg/dL (9-20); Calcium 9.8 mg/dL (8.4-10.2); Carbon Dioxide 21 mmol/L (22-32); Chloride 106 mmol/L (98-107); Cholesterol 84 mg/dL (140-199); Estimated Glomerular Filt Rate 50.5 mL/min (>60); Globulin 2.8 g/dL (1.7-4.1); Glucose 105 mg/dL (80-110); HDL Cholesterol 24 mg/dL (40-60); HEMOLYSIS < 15 (0-50); LDL Cholesterol Calculated 30 mg/dL (<100); Potassium 5.1 mmol/L (3.4-5.1); Sodium 139 mmol/L (137-145); Total Protein 7.1 g/dL (6.3-8.2); Triglycerides 151 mg/dL (35-150)
== END ==
PROVIDERS: PCP Internal Medicine; Visit Provider Internal Medicine
DX: E11.9 Type 2 diabetes mellitus without complications (principal); E78.5 Hyperlipidemia, unspecified; I10 Essential (primary) hypertension
CPT/HCPCS: 36415; 80053; 80061; 83036

== ENCOUNTER → 2020-03-29 07:35 | Outpatient (CLI) | payer MEDICARE, OTHER, SELFPAY ==
[2019-08-15 13:36] VITALS: BMI 27.5
[2020-03-29 08:33] LABS: BUN Creatinine Ratio 20.4 (6-22); Blood Urea Nitrogen 28 mg/dL (9-20); Calcium 9.6 mg/dL (8.4-10.2); Carbon Dioxide 21 mmol/L (22-32); Chloride 106 mmol/L (98-107); Estimated Glomerular Filt Rate 51.8 mL/min (>60); Glucose 127 mg/dL (80-110); HEMOLYSIS < 15 (0-50); Potassium 4.9 mmol/L (3.4-5.1); Sodium 141 mmol/L (137-145)
[2020-03-29 08:34] LABS: Hemoglobin A1C% w Est Avg Glu 7.5 % (4.0-6.0)
== END ==
PROVIDERS: PCP Internal Medicine; Referring Provider Internal Medicine; Visit Provider Internal Medicine
DX: E11.65 Type 2 diabetes mellitus with hyperglycemia (principal); I10 Essential (primary) hypertension
CPT/HCPCS: 36415; 80048; 83036

== ENCOUNTER → 2020-06-29 07:24 | Outpatient (CLI) | payer MEDICARE, OTHER, SELFPAY ==
[2019-08-15 13:36] VITALS: BMI 27.5
[2020-06-29 08:21] LABS: Hemoglobin A1C% w Est Avg Glu 8.6 % (4.0-6.0)
[2020-06-29 08:23] LABS: Alanine Aminotransferase 15 IU/L (<50); Albumin Globulin Ratio 1.3 (1.0-2.8); Alkaline Phosphatase 110 U/L (38-126); Aspartate Aminotransferase 16 IU/L (17-59); BUN Creatinine Ratio 21.1 (6-22); Bilirubin Total 0.4 mg/dL (0.2-1.3); Blood Urea Nitrogen 28 mg/dL (9-20); Calcium 9.4 mg/dL (8.4-10.2); Carbon Dioxide 23 mmol/L (22-32); Chloride 108 mmol/L (98-107); Cholesterol 82 mg/dL (140-199); Estimated Glomerular Filt Rate 53.6 mL/min (>60); Glucose 180 mg/dL (80-110); HDL Cholesterol 23 mg/dL (40-60); HEMOLYSIS < 15 (0-50); LDL Cholesterol Calculated 11 mg/dL (<100); Sodium 139 mmol/L (137-145); Triglycerides 240 mg/dL (35-150)
== END ==
PROVIDERS: PCP Internal Medicine; Referring Provider Internal Medicine; Visit Provider Internal Medicine
DX: E11.65 Type 2 diabetes mellitus with hyperglycemia (principal); E78.5 Hyperlipidemia, unspecified; I10 Essential (primary) hypertension
CPT/HCPCS: 36415; 80053; 80061; 83036

== ENCOUNTER → 2020-09-24 07:29 | Outpatient (CLI) | payer MEDICARE, OTHER, SELFPAY ==
[2019-08-15 13:36] VITALS: BMI 27.5
[2020-09-24 08:30] LABS: Hemoglobin A1C% w Est Avg Glu 7.8 % (4.0-6.0)
[2020-09-24 09:12] LABS: BUN Creatinine Ratio 23.1 (6-22); Blood Urea Nitrogen 31 mg/dL (9-20); Calcium 9.2 mg/dL (8.4-10.2); Carbon Dioxide 24 mmol/L (22-32); Chloride 107 mmol/L (98-107); Glucose 107 mg/dL (80-110); HEMOLYSIS < 15 (0-50); Sodium 137 mmol/L (137-145)
== END ==
PROVIDERS: PCP Internal Medicine; Referring Provider Internal Medicine; Visit Provider Internal Medicine
DX: E11.65 Type 2 diabetes mellitus with hyperglycemia (principal); I10 Essential (primary) hypertension
CPT/HCPCS: 36415; 80048; 83036

== ENCOUNTER → 2020-12-25 07:29 | Outpatient (CLI) | payer MEDICARE, OTHER, SELFPAY ==
[2019-08-15 13:36] VITALS: BMI 27.5
[2020-12-25 08:42] LABS: Hemoglobin A1C% w Est Avg Glu 7.8 % (4.0-6.0)
[2020-12-25 08:48] LABS: Alanine Aminotransferase 16 IU/L (<50); Albumin 4.3 g/dL (3.5-5.0); Albumin Globulin Ratio 1.3 (1.0-2.8); Alkaline Phosphatase 101 U/L (38-126); Aspartate Aminotransferase 17 IU/L (17-59); BUN Creatinine Ratio 24.4 (6-22); Bilirubin Total 0.3 mg/dL (0.2-1.3); Blood Urea Nitrogen 33 mg/dL (9-20); Calcium 9.5 mg/dL (8.4-10.2); Carbon Dioxide 26 mmol/L (22-32); Chloride 106 mmol/L (98-107); Estimated Glomerular Filt Rate 52.6 mL/min (>60); Globulin 3.3 g/dL (1.7-4.1); Glucose 132 mg/dL (80-110); HEMOLYSIS < 15 (0-50); Potassium 4.6 mmol/L (3.4-5.1); Sodium 139 mmol/L (137-145); Total Protein 7.6 g/dL (6.3-8.2)
== END ==
PROVIDERS: PCP Internal Medicine; Referring Provider Internal Medicine; Visit Provider Internal Medicine
DX: E11.65 Type 2 diabetes mellitus with hyperglycemia (principal); I10 Essential (primary) hypertension
CPT/HCPCS: 36415; 80053; 83036

== ENCOUNTER → 2021-03-27 07:28 | Outpatient (CLI) | payer MEDICARE, OTHER, SELFPAY ==
[2019-08-15 13:36] VITALS: BMI 27.5
[2021-03-27 08:46] LABS: Hemoglobin A1C% w Est Avg Glu 7.3 % (4.0-6.0)
[2021-03-27 09:09] LABS: Alanine Aminotransferase 17 IU/L (<50); Albumin 4.3 g/dL (3.5-5.0); Albumin Globulin Ratio 1.5 (1.0-2.8); Alkaline Phosphatase 104 U/L (38-126); Aspartate Aminotransferase 18 IU/L (17-59); BUN Creatinine Ratio 23.8 (6-22); Bilirubin Total 0.3 mg/dL (0.2-1.3); Blood Urea Nitrogen 36 mg/dL (9-20); Calcium 9.6 mg/dL (8.4-10.2); Carbon Dioxide 24 mmol/L (22-32); Chloride 106 mmol/L (98-107); Cholesterol 81 mg/dL (140-199); Estimated Glomerular Filt Rate 46.2 mL/min (>60); Globulin 2.8 g/dL (1.7-4.1); Glucose 112 mg/dL (80-110); HDL Cholesterol 24 mg/dL (40-60); HEMOLYSIS < 15 (0-50); LDL Cholesterol Calculated 18 mg/dL (<100); Potassium 5.2 mmol/L (3.4-5.1); Sodium 140 mmol/L (137-145); Total Protein 7.1 g/dL (6.3-8.2); Triglycerides 194 mg/dL (35-150)
[2021-03-27 10:22] LABS: Creatinine Urine Random 117.1 mg/dL
[2021-03-27 10:56] LABS: Microalbumi Creatinin Ratio Ur 45.2 ug/mg CR (<30); Microalbumin Urine Random 5.3 mg/dL (0-1.6)
== END ==
PROVIDERS: PCP Internal Medicine; Referring Provider Internal Medicine; Visit Provider Internal Medicine
DX: E11.65 Type 2 diabetes mellitus with hyperglycemia (principal); E78.2 Mixed hyperlipidemia; I10 Essential (primary) hypertension; N18.31 Chronic kidney disease, stage 3a
CPT/HCPCS: 36415; 80053; 80061; 82043; 82570; 83036

== ENCOUNTER → 2021-09-23 09:09 | Outpatient (CLI) | payer MEDICARE, OTHER, SELFPAY ==
[2019-08-15 13:36] VITALS: BMI 27.5
[2021-09-23 09:41] LABS: Hemoglobin A1C% w Est Avg Glu 8.1 % (4.0-6.0)
[2021-09-23 09:47] LABS: Alanine Aminotransferase 17 IU/L (<50); Albumin 4.5 g/dL (3.5-5.0); Albumin Globulin Ratio 1.5 (1.0-2.8); Alkaline Phosphatase 105 U/L (38-126); Aspartate Aminotransferase 17 IU/L (17-59); BUN Creatinine Ratio 24.2 (6-22); Bilirubin Total 0.5 mg/dL (0.2-1.3); Blood Urea Nitrogen 37 mg/dL (9-20); Calcium 9.1 mg/dL (8.4-10.2); Carbon Dioxide 24 mmol/L (22-32); Chloride 105 mmol/L (98-107); Cholesterol 87 mg/dL (140-199); Estimated Glomerular Filt Rate 45.4 mL/min (>60); Globulin 3.1 g/dL (1.7-4.1); Glucose 126 mg/dL (80-110); HDL Cholesterol 24 mg/dL (40-60); HEMOLYSIS < 15 (0-50); LDL Cholesterol Calculated 26 mg/dL (<100); Potassium 4.7 mmol/L (3.4-5.1); Sodium 139 mmol/L (137-145); Total Protein 7.6 g/dL (6.3-8.2); Triglycerides 183 mg/dL (35-150)
== END ==
PROVIDERS: PCP Internal Medicine; Referring Provider Internal Medicine; Visit Provider Internal Medicine
DX: E11.9 Type 2 diabetes mellitus without complications (principal); I10 Essential (primary) hypertension; E78.2 Mixed hyperlipidemia; N18.31 Chronic kidney disease, stage 3a
CPT/HCPCS: 36415; 80053; 80061; 83036

== ENCOUNTER → 2022-01-02 07:25 | Outpatient (CLI) | payer MEDICARE, OTHER, SELFPAY ==
[2019-08-15 13:36] VITALS: BMI 27.5
[2022-01-02 08:17] LABS: BUN Creatinine Ratio 20.6 (6-22); Blood Urea Nitrogen 29 mg/dL (9-20); Carbon Dioxide 27 mmol/L (22-32); Chloride 106 mmol/L (98-107); Estimated Glomerular Filt Rate 49.8 mL/min (>60); Glucose 133 mg/dL (80-110); HEMOLYSIS < 15 (0-50); Potassium 4.7 mmol/L (3.4-5.1); Sodium 142 mmol/L (137-145)
[2022-01-02 09:16] LABS: Hemoglobin A1C% w Est Avg Glu 7.5 % (4.0-6.0)
== END ==
PROVIDERS: PCP Internal Medicine; Referring Provider Internal Medicine; Visit Provider Internal Medicine
DX: E11.9 Type 2 diabetes mellitus without complications (principal); E78.2 Mixed hyperlipidemia; I10 Essential (primary) hypertension; N18.31 Chronic kidney disease, stage 3a
CPT/HCPCS: 36415; 80048; 83036

== ENCOUNTER → 2022-03-25 07:20 | Outpatient (CLI) | payer MEDICARE, OTHER, SELFPAY ==
[2019-08-15 13:36] VITALS: BMI 27.5
[2022-03-25 08:42] LABS: Hemoglobin A1C% w Est Avg Glu 8.7 % (4.0-6.0)
[2022-03-25 09:22] LABS: BUN Creatinine Ratio 22.9 (6-22); Blood Urea Nitrogen 32 mg/dL (9-20); Carbon Dioxide 23 mmol/L (22-32); Chloride 109 mmol/L (98-107); Estimated Glomerular Filt Rate 54 mL/min (>60); Glucose 131 mg/dL (80-110); HEMOLYSIS < 15 (0-50); Potassium 4.6 mmol/L (3.4-5.1); Sodium 141 mmol/L (137-145)
== END ==
PROVIDERS: PCP Internal Medicine; Referring Provider Internal Medicine; Visit Provider Internal Medicine
DX: E11.65 Type 2 diabetes mellitus with hyperglycemia (principal); I10 Essential (primary) hypertension
CPT/HCPCS: 36415; 80048; 83036

== ENCOUNTER → 2022-07-01 09:05 | Outpatient (CLI) | payer MEDICARE, OTHER, SELFPAY ==
[2019-08-15 13:36] VITALS: BMI 27.5
[2022-07-01 11:50] LABS: Hemoglobin A1C% w Est Avg Glu 7.3 % (4.0-6.0)
[2022-07-01 12:23] LABS: BUN Creatinine Ratio 21.3 (6-22); Blood Urea Nitrogen 27 mg/dL (9-20); Carbon Dioxide 26 mmol/L (22-32); Chloride 107 mmol/L (98-107); Estimated Glomerular Filt Rate > 60 mL/min (>60); Glucose 88 mg/dL (80-110); HEMOLYSIS < 15 (0-50); Potassium 4.6 mmol/L (3.4-5.1); Sodium 142 mmol/L (137-145)
== END ==
PROVIDERS: PCP Internal Medicine; Referring Provider Internal Medicine; Visit Provider Internal Medicine
DX: E11.65 Type 2 diabetes mellitus with hyperglycemia (principal); N18.31 Chronic kidney disease, stage 3a
CPT/HCPCS: 36415; 80048; 83036

== ENCOUNTER → 2022-09-27 10:08 | Outpatient (CLI) | payer MEDICARE, OTHER, SELFPAY ==
[2019-08-15 13:36] VITALS: BMI 27.5
== END ==
PROVIDERS: PCP Internal Medicine; Visit Provider Physician Assistant
DX: R10.9 Unspecified abdominal pain (principal)
CPT/HCPCS: 87086

== ENCOUNTER 2022-09-27 10:33 | Emergency (ER) | payer MEDICARE, OTHER, SELFPAY ==
[2019-08-15 13:36] VITALS: BMI 27.5
[2022-09-27 10:40] VITALS: BP 198/91; PULSE 83; RESP 15; TEMP 36.6; O2SAT 99; BMI 27.1
[2022-09-27 10:59] LABS: Appearance Urine UA CLEAR; Bilirubin Urine UA NEGATIVE (NEGATIVE); Color Urine UA YELLOW; Glucose Urine UA TRACE g/dL (Negative); Ketones Urine UA NEGATIVE (NEGATIVE); Leukocyte Esterase Urine UA NEGATIVE (NEGATIVE); Nitrite Urine UA NEGATIVE (Negative); Occult Blood Urine UA 1+ (Negative); Protein Urine UA 1+ (Negative); Urobilinogen Urine UA 0.2 E.U./dL (0.2)
[2022-09-27 11:27] LABS: RBC Urine 1-5/HPF (0-5/HPF); WBC Urine None Seen (0-5/HPF)
[2022-09-27 11:28] LABS: Bacteria Urine None Seen
--- NOTE | 2022-09-27 11:39 | DI.RAD.S_ITS ---
PROCEDURE: XR LUMBAR SPINE 2-3V INDICATIONS: left side pain TECHNIQUE: 2 views of the lumbar spine were acquired. COMPARISON: [facility], CR, XR LUMBAR SPINE 2 OR 3 VIEWS, 08/23/2020, 10:08. [facility], CR, XR LUMBAR SPINE 2 OR 3 VIEWS, 12/01/2019, 9:56. [facility], CR, XR LUMBAR SPINE 2 OR 3 VIEWS, 09/28/2019, 11:04. [facility], CR, XR LUMBAR SPINE 2-3V, 08/15/2019, 8:36. FINDINGS: Bones: Postoperative changes are seen, with bilateral pedicle screws at the L4 through S1 levels. The screws appear well placed. Vertical fixation rods are seen. Disc spacers are seen at L4-L5 and L5-S1. No findings of hardware failure or hardware loosening are seen. 5 nonrib-bearing, lumbar type vertebral bodies are seen. No acute appearing fractures are seen. No suspicious lytic or blastic lesions can be seen. Mild disc space narrowing can be seen at L2-L3 and L3-L4. Minimal dextroconvex scoliotic curvature is seen. Soft tissues: Overlying bowel gas pattern is normal. No suspicious soft tissue calcifications. Cholecystectomy clips are seen. Right-sided abdominal postoperative changes are seen, including anastomotic staple lines. Mid pelvis clips are also seen. IMPRESSION: Unremarkable postoperative hardware. Stable degenerative change. Cholecystectomy and right-sided abdominal postoperative change. Dictated by: Ross Samuels M.D. on 09/27/2022 at 11:04 Approved by: Ross Samuels M.D. on 09/27/2022 at 11:06
--- NOTE | 2022-09-27 12:47 | ED.BACK ---
HPI - Back Pain/Injury <ROMEO White - Last Filed: 09/27/22 15:26> General Chief Complaint: Back Pain/Injury Stated Complaint: extreme back pain sent by [facility] thinks kidney stone Time Seen by Provider: 09/27/22 11:12 Source: patient History of Present Illness HPI Narrative: This is a 72-year-old male who presents to the emergency department after being seen at the walk-in clinic for concern about new low back pain status post lumbar spine surgery [address] Chelita arizmendi at [facility]. Patient denies any recent trauma, new activity, exacerbation of activity, flank pain, dysuria, urinary retention or urgency, or other changes. Patient has history of lumbar surgery and has chronic low back pain, also has history of type 2 diabetes, hypertension, GERD, and CKD. Patient denies any other systemic changes, denies any palpitations, chest pain, abdominal pain, nausea vomiting, incontinence, weakness, radiculopathy or sciatica, denies any radiation of his pain whatsoever. He states it is just left to the middle of his lumbar surgery location and is concerned about his prior hardware. He denies any recent change to his pain, states it is dull, constant, and dislocation and has been there worsening over the last 2 days. Related Data Home Medications Medication Instructions Recorded Confirmed metformin 500 mg tablet,extended 1,000 mg PO BID 04/08/22 09/27/22 release 24 hr Previous Rx's Medication Instructions Recorded Precision Xtra Test Strips #250 ea 08/02/18 Disabled Parking #1 ea 05/02/19 acetaminophen 500 mg tablet 500 mg PO Q4H PRN pain #60 tabs 08/17/19 (Tylenol Extra Strength) aspirin 81 mg tablet,delayed 81 mg PO QDAY #90 tabs 09/16/19 release blood-glucose meter (Blood Glucose #1 ea 01/01/21 Monitoring kit) atorvastatin 20 mg tablet (Lipitor) 20 mg PO QAM #90 tabs 10/15/21 candesartan 16 mg tablet 8 mg PO DAILY #45 tabs 04/07/22 glipizide 10 mg tablet, extended 10 mg PO BID #180 tabs 07/28/22 release 24 hr hydrocodone 5 mg-acetaminophen 325 1 tab PO TID PRN pain #14 tabs 11/26/22 mg tablet lidocaine 5 % topical patch 1 patch topical DAILY PRN pain #15 09/27/22 (Lidoderm) ea methocarbamol 500 mg tablet 500 mg PO Q8H PRN muscle 09/27/22 spasm/pain #20 tabs naproxen 250 mg tablet 250 mg PO BID PRN pain #20 tabs 09/27/22 Allergies Allergy/AdvReac Type Severity Reaction Status Date / Time lisinopril AdvReac Intermediate Cough Verified 09/27/22 10:44 metronidazole [METRONIDAZOLE] AdvReac Intermediate nausea Verified 09/27/22 10:44 Review of Systems <ROMEO White - Last Filed: 09/27/22 15:26> Review of Systems Narrative: Review of systems is negative for acute abnormalities unless otherwise noted in HPI Patient History <ROMEO White - Last Filed: 09/27/22 15:26> Medical History Arthritis Backache Chronic back pain Chronic renal failure, stage 3a Depression Dorsalgia Essential hypertension GERD (gastroesophageal reflux disease) H/O adenomatous polyp of colon Hyperlipidemia Peptic ulcer disease Type 2 diabetes mellitus with hyperglycemia Surgical History Anesthesia H/O toe surgery S/P ACL reconstruction Status post appendectomy Status post cholecystectomy Status post colectomy Family History Father Diabetes mellitus Hypertension Mother Diabetes mellitus Social History marital status: number of children: 2 household members: spouse lives independently: Yes caregiver/support person: No housing: house pets and animals: Yes education level: other (Bachelors degree) occupational 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 General: cooperative, comfortable, in no acute distress, well groomed HEENT: symmetrical facial expressions, moist mucous membranes Cardiovascular: regular rate and rhythm, no peripheral edema, warm extremities Respiratory: normal effort, able to speak in complete sentences, without wheezing, stridor, or abnormal breath sounds. No retractions or tachypnea. GI: abdomen soft, nontender to palpation, nondistended, without masses, rebound tenderness or exquisite tenderness with exam. MSK: moves all extremities, neurovascularly intact, no weakness, normal tone, no tenderness over lumbar spinal processes, just left to his middle lumbar spine patient has tenderness over the paraspinal musculature without increased tenderness with palpation, no erythema, no CVA tenderness, dorsiflexion and plantar extension intact and strength is equal bilaterally on my exam, no change to pain with leg lift. Without sensation changes, patient is ambulatory Skin: brisk capillary refill, without pallor or erythema Neuro: normal speech and cognition, A&O x3, ambulatory, clear speech Psych: mental status is grossly normal, congruent mood, normal affect, pleasant and cooperative Initial Vital Signs Initial Vital Signs: Vital Signs Temperature 97.8 F 09/27/22 10:40 Pulse Rate 83 09/27/22 10:40 Respiratory Rate 15 09/27/22 10:40 Blood Pressure 198/91 H 09/27/22 10:40 Pulse Oximetry 99 09/27/22 10:40 Oxygen Delivery Method 09/27/22 10:40 <Humble Shaver MD - Last Filed: 09/28/22 07:10> Initial Vital Signs Initial Vital Signs: Vital Signs Temperature 97.8 F 09/27/22 10:40 Pulse Rate 83 09/27/22 10:40 Respiratory Rate 15 09/27/22 10:40 Blood Pressure 198/91 H 09/27/22 10:40 Pulse Oximetry 99 09/27/22 10:40 Oxygen Delivery Method 09/27/22 10:40 Course <ROMEO White - Last Filed: 09/27/22 15:26> Orders Ordered: Discontinued Medications Hydromorphone HCl (Hydromorphone 0.5 Mg Inj) 0.5 mg IV NOW ONE Stop: 09/27/22 12:44 Last Admin: 09/27/22 12:53 Dose: 0.5 mg Documented By: CRISSY Ketorolac Tromethamine (Ketorolac 30 Mg/Ml Vial) 15 mg IV NOW ONE Stop: 09/27/22 12:44 Last Admin: 09/27/22 12:53 Dose: 15 mg Documented By: CRISSY Lidocaine (Lidocaine Patch 1 Each Adh..Patch) 1 each TOP NOW ONE Stop: 09/27/22 12:46 Last Admin: 09/27/22 12:53 Dose: 1 each Documented By: CRISSY Methocarbamol (Methocarbamol 500 Mg Tablet) 500 mg PO NOW ONE Stop: 09/27/22 12:46 Last Admin: 09/27/22 12:54 Dose: 500 mg Documented By: CRISSY Vital Signs Vital signs: Vital Signs - 8 hr 09/27/22 10:40 09/27/22 13:39 Temperature 97.8 F Pulse Rate 83 62 Respiratory Rate 15 Blood Pressure 198/91 H 153/78 H Pulse Oximetry 99 95 Oxygen Delivery Method Room Air Room Air <Humble Shaver MD - Last Filed: 09/28/22 07:10> Orders Ordered: Discontinued Medications Hydromorphone HCl (Hydromorphone 0.5 Mg Inj) 0.5 mg IV NOW ONE Stop: 09/27/22 12:44 Last Admin: 09/27/22 12:53 Dose: 0.5 mg Documented By: CRISSY Ketorolac Tromethamine (Ketorolac 30 Mg/Ml Vial) 15 mg IV NOW ONE Stop: 09/27/22 12:44 Last Admin: 09/27/22 12:53 Dose: 15 mg Documented By: CRISSY Lidocaine (Lidocaine Patch 1 Each Adh..Patch) 1 each TOP NOW ONE Stop: 09/27/22 12:46 Last Admin: 09/27/22 12:53 Dose: 1 each Documented By: CRISSY Methocarbamol (Methocarbamol 500 Mg Tablet) 500 mg PO NOW ONE Stop: 09/27/22 12:46 Last Admin: 09/27/22 12:54 Dose: 500 mg Documented By: CRISSY Vital Signs Vital signs: Vital Signs - 8 hr 09/27/22 10:40 09/27/22 13:39 Temperature 97.8 F Pulse Rate 83 62 Respiratory Rate 15 Blood Pressure 198/91 H 153/78 H Pulse Oximetry 99 95 Oxygen Delivery Method Room Air Room Air MDM - Back Pain/Injury <Oxana Garsia, [facility] - Last Filed: 09/27/22 15:26> Lab Data Result diagrams: 09/27/22 10:49 09/27/22 10:49 Labs: Lab Results 09/27/22 09/27/22 09/27/22 Range/Units 10:46 10:49 10:49 WBC 8.1 (4.5-11.0) X10^3/uL RBC 4.18 L (4.5-5.9) X10^6/uL Hgb 12.7 L (13.5-17.5) g/dL Hct 36.8 L (41-53) % MCV 87.9 (80-100) fL MCH 30.3 (26-34) PG MCHC 34.5 (30-36) % RDW 13.6 (11.6-14.8) % Plt Count 234 (150-400) X10^3/uL Neut % (Auto) Not Reportable Lymph % (Auto) Not Reportable [place] % (Auto) Not Reportable Eos % (Auto) Not Reportable Baso % (Auto) Not Reportable Lymph # (Auto) Not Reportable [place] # (Auto) Not Reportable Baso # (Auto) Not Reportable Total Counted 100 Seg Neutrophils % 55.0 (38-70) % Lymphocytes % (Manual) 29.0 (25-45) % Atypical Lymphs % 6.0 H ( - 0) % Monocytes % (Manual) 7.0 (2-11) % Eosinophils % (Manual) 3.0 (2-4) % Neutrophils # (Manual) 4455 (4712-1458) /uL Platelet Estimate Adequate on smear RBC Morphology Normal morphology Sodium 141 (137-145) mmol/L Potassium 4.4 (3.4-5.1) mmol/L Chloride 106 (98-107) mmol/L Carbon Dioxide 22 (22-32) mmol/L BUN 25 H (9-20) mg/dL Creatinine 1.16 (0.66-1.25) mg/dL Estimated GFR > 60 (>60) mL/min BUN/Creatinine Ratio 21.6 (6-22) Glucose 178 H (80-110) mg/dL Calcium 9.2 (8.4-10.2) mg/dL Total Bilirubin 0.6 (0.2-1.3) mg/dL AST 23 (17-59) IU/L ALT 21 (<50) IU/L Alkaline Phosphatase 123 (38-126) U/L Total Protein 8.4 H (6.3-8.2) g/dL Albumin 4.7 (3.5-5.0) g/dL Globulin 3.7 (1.7-4.1) g/dL Albumin/Globulin Ratio 1.3 (1.0-2.8) Procalcitonin (<0.5) ng/mL Urine Color Yellow Urine Appearance Clear Urine pH 5.0 (4.5-8.0) Ur Specific [place] 1.020 (1.000-1.035) Urine Protein 1+ H (Negative) Urine Glucose (UA) Trace H (Negative) g/dL Urine Ketones Negative (NEGATIVE) Urine Occult Blood 1+ H (Negative) Urine Nitrate Negative (Negative) Urine Bilirubin Negative (NEGATIVE) Urine Urobilinogen 0.2 (0.2) E.U./dL Ur Leukocyte Esterase Negative (NEGATIVE) Urine RBC 1-5/hpf (0-5/HPF) Urine WBC None seen (0-5/HPF) Urine Bacteria None seen (None) 09/27/22 Range/Units 10:49 WBC (4.5-11.0) X10^3/uL RBC (4.5-5.9) X10^6/uL Hgb (13.5-17.5) g/dL Hct (41-53) % MCV (80-100) fL MCH (26-34) PG MCHC (30-36) % RDW (11.6-14.8) % Plt Count (150-400) X10^3/uL Neut % (Auto) Lymph % (Auto) [place] % (Auto) Eos % (Auto) Baso % (Auto) Lymph # (Auto) [place] # (Auto) Baso # (Auto) Total Counted Seg Neutrophils % (38-70) % Lymphocytes % (Manual) (25-45) % Atypical Lymphs % ( - 0) % Monocytes % (Manual) (2-11) % Eosinophils % (Manual) (2-4) % Neutrophils # (Manual) ([id number]) /uL Platelet Estimate RBC Morphology Sodium (137-145) mmol/L Potassium (3.4-5.1) mmol/L Chloride (98-107) mmol/L Carbon Dioxide (22-32) mmol/L BUN (9-20) mg/dL Creatinine (0.66-1.25) mg/dL Estimated GFR (>60) mL/min BUN/Creatinine Ratio (6-22) Glucose (80-110) mg/dL Calcium (8.4-10.2) mg/dL Total Bilirubin (0.2-1.3) mg/dL AST (17-59) IU/L ALT (<50) IU/L Alkaline Phosphatase (38-126) U/L Total Protein (6.3-8.2) g/dL Albumin (3.5-5.0) g/dL Globulin (1.7-4.1) g/dL Albumin/Globulin Ratio (1.0-2.8) Procalcitonin 0.36 (<0.5) ng/mL Urine Color Urine Appearance Urine pH (4.5-8.0) Ur Specific [place] (1.000-1.035) Urine Protein (Negative) Urine Glucose (UA) (Negative) g/dL Urine Ketones (NEGATIVE) Urine Occult Blood (Negative) Urine Nitrate (Negative) Urine Bilirubin (NEGATIVE) Urine Urobilinogen (0.2) E.U./dL Ur Leukocyte Esterase (NEGATIVE) Urine RBC (0-5/HPF) Urine WBC (0-5/HPF) Urine Bacteria (None) Imaging Data Extremity x-ray #1: Radiologist's Impression: PROCEDURE:? XR LUMBAR SPINE 2-3V ? INDICATIONS:? left side pain ? TECHNIQUE:? 2 views of the lumbar spine were acquired.? ? COMPARISON:? [facility] [place], CR, XR LUMBAR SPINE 2 OR 3 VIEWS, 08/23/2020, 10:08.? [facility] [place], CR, XR LUMBAR SPINE 2 OR 3 VIEWS, 12/01/2019, 9:56.? [facility] [place], CR, XR LUMBAR SPINE 2 OR 3 VIEWS, 09/28/2019, 11:04.? [facility], CR, XR LUMBAR SPINE 2-3V, 08/15/2019, 8:36. ? FINDINGS:? ? Bones:? Postoperative changes are seen, with bilateral pedicle screws at the L4 through S1 levels.? The screws appear well placed.? Vertical fixation rods are seen.? Disc spacers are seen at L4-L5 and L5-S1. ? No findings of hardware failure or hardware loosening are seen. ? 5 nonrib-bearing, lumbar type vertebral bodies are seen. ? No acute appearing fractures are seen.? No suspicious lytic or blastic lesions can be seen. ? ? Mild disc space narrowing can be seen at L2-L3 and L3-L4.? Minimal dextroconvex scoliotic curvature is seen. ? Soft tissues:? Overlying bowel gas pattern is normal.? No suspicious soft tissue calcifications.? Cholecystectomy clips are seen.? Right-sided abdominal postoperative changes are seen, including anastomotic staple lines.? Mid pelvis clips are also seen. ? ? ? IMPRESSION:? Unremarkable postoperative hardware. ? Stable degenerative change. ? Cholecystectomy and right-sided abdominal postoperative change.? ? Dictated by: Ross Samuels M.D. on 09/27/2022 at 11:04 ? ? Approved by: Ross Samuels M.D. on 09/27/2022 at 11:06 ? MDM Narrative Medical decision making narrative: Patient presents with 2 days of left-sided lumbar back pain, without trauma, and is afebrile. Given history and exam, suspect likely musculoskeletal etiology, he has history of prior lumbar surgery [address] Merlos. X-ray today of his lumbar spine shows unremarkable postoperative hardware with stable degenerative changes, also mentions cholecystectomy and right-sided abdominal postoperative changes. Patient does not have any radiculopathy or sensation changes, without radiation of his pain, without any tenderness to palpation. His symptoms improve with above therapies and patient was ready to discharge home. They are nontoxic appearing with no overt risk factors for epidural hematoma or abscess. No overt evidence of critical cord compression and has a nonfocal near exam. Neurovascularly intact distally, no evidence of infection, peritoneal signs, hypertensive crisis, or abdominal pain with low suspicion for AAA. No weakness, incontinence, neurovascular or sensation changes, no concerning findings for caudal equina syndrome, lumbar fracture, without paresthesia, neuropathic pain, meningeal signs and fever. This could be a herniated disk, paraspinal or other muscle strain, ligamental injury, arthritic, nephrolithiasis/pyelonephritis, epidural abscess, chronic pain, and other diagnosis? considered less likely. <Humble Shaver MD - Last Filed: 09/28/22 07:10> Lab Data Labs: Lab Results 09/27/22 09/27/22 09/27/22 Range/Units 10:46 10:49 10:49 WBC 8.1 (4.5-11.0) X10^3/uL RBC 4.18 L (4.5-5.9) X10^6/uL Hgb 12.7 L (13.5-17.5) g/dL Hct 36.8 L (41-53) % MCV 87.9 (80-100) fL MCH 30.3 (26-34) PG MCHC 34.5 (30-36) % RDW 13.6 (11.6-14.8) % Plt Count 234 (150-400) X10^3/uL Neut % (Auto) Not Reportable Lymph % (Auto) Not Reportable [place] % (Auto) Not Reportable Eos % (Auto) Not Reportable Baso % (Auto) Not Reportable Lymph # (Auto) Not Reportable [place] # (Auto) Not Reportable Baso # (Auto) Not Reportable Total Counted 100 Seg Neutrophils % 55.0 (38-70) % Lymphocytes % (Manual) 29.0 (25-45) % Atypical Lymphs % 6.0 H ( - 0) % Monocytes % (Manual) 7.0 (2-11) % Eosinophils % (Manual) 3.0 (2-4) % Neutrophils # (Manual) 4455 (8844-9922) /uL Platelet Estimate Adequate on smear RBC Morphology Normal morphology Sodium 141 (137-145) mmol/L Potassium 4.4 (3.4-5.1) mmol/L Chloride 106 (98-107) mmol/L Carbon Dioxide 22 (22-32) mmol/L BUN 25 H (9-20) mg/dL Creatinine 1.16 (0.66-1.25) mg/dL Estimated GFR > 60 (>60) mL/min BUN/Creatinine Ratio 21.6 (6-22) Glucose 178 H (80-110) mg/dL Calcium 9.2 (8.4-10.2) mg/dL Total Bilirubin 0.6 (0.2-1.3) mg/dL AST 23 (17-59) IU/L ALT 21 (<50) IU/L Alkaline Phosphatase 123 (38-126) U/L Total Protein 8.4 H (6.3-8.2) g/dL Albumin 4.7 (3.5-5.0) g/dL Globulin 3.7 (1.7-4.1) g/dL Albumin/Globulin Ratio 1.3 (1.0-2.8) Procalcitonin (<0.5) ng/mL Urine Color Yellow Urine Appearance Clear Urine pH 5.0 (4.5-8.0) Ur Specific [place] 1.020 (1.000-1.035) Urine Protein 1+ H (Negative) Urine Glucose (UA) Trace H (Negative) g/dL Urine Ketones Negative (NEGATIVE) Urine Occult Blood 1+ H (Negative) Urine Nitrate Negative (Negative) Urine Bilirubin Negative (NEGATIVE) Urine Urobilinogen 0.2 (0.2) E.U./dL Ur Leukocyte Esterase Negative (NEGATIVE) Urine RBC 1-5/hpf (0-5/HPF) Urine WBC None seen (0-5/HPF) Urine Bacteria None seen (None) 09/27/22 Range/Units 10:49 WBC (4.5-11.0) X10^3/uL RBC (4.5-5.9) X10^6/uL Hgb (13.5-17.5) g/dL Hct (41-53) % MCV (80-100) fL MCH (26-34) PG MCHC (30-36) % RDW (11.6-14.8) % Plt Count (150-400) X10^3/uL Neut % (Auto) Lymph % (Auto) [place] % (Auto) Eos % (Auto) Baso % (Auto) Lymph # (Auto) [place] # (Auto) Baso # (Auto) Total Counted Seg Neutrophils % (38-70) % Lymphocytes % (Manual) (25-45) % Atypical Lymphs % ( - 0) % Monocytes % (Manual) (2-11) % Eosinophils % (Manual) (2-4) % Neutrophils # (Manual) ([id number]) /uL Platelet Estimate RBC Morphology Sodium (137-145) mmol/L Potassium (3.4-5.1) mmol/L Chloride (98-107) mmol/L Carbon Dioxide (22-32) mmol/L BUN (9-20) mg/dL Creatinine (0.66-1.25) mg/dL Estimated GFR (>60) mL/min BUN/Creatinine Ratio (6-22) Glucose (80-110) mg/dL Calcium (8.4-10.2) mg/dL Total Bilirubin (0.2-1.3) mg/dL AST (17-59) IU/L ALT (<50) IU/L Alkaline Phosphatase (38-126) U/L Total Protein (6.3-8.2) g/dL Albumin (3.5-5.0) g/dL Globulin (1.7-4.1) g/dL Albumin/Globulin Ratio (1.0-2.8) Procalcitonin 0.36 (<0.5) ng/mL Urine Color Urine Appearance Urine pH (4.5-8.0) Ur Specific [place] (1.000-1.035) Urine Protein (Negative) Urine Glucose (UA) (Negative) g/dL Urine Ketones (NEGATIVE) Urine Occult Blood (Negative) Urine Nitrate (Negative) Urine Bilirubin (NEGATIVE) Urine Urobilinogen (0.2) E.U./dL Ur Leukocyte Esterase (NEGATIVE) Urine RBC (0-5/HPF) Urine WBC (0-5/HPF) Urine Bacteria (None) Discharge Plan Departure Patient Disposition: Home Clinical Impression: Acute lumbar back pain Qualifiers: Back pain laterality: left Sciatica presence: without sciatica Qualified Code(s): M54.50 - Low back pain, unspecified Instructions: DI for Low Back Pain, DI for Muscle Strain Activity Restrictions/Additional Instructions: *You have been diagnosed with low back pain to the left lumbar paraspinal musculature without radiation. This could be a muscle strain or sprain, and is likely soft tissue. Please use these medications as needed to help treat your pain, add heat and or ice if this is helpful, avoid overexertion. Please follow-up with Dr. Merlos and schedule an appointment for next week. Please return for worsening, if you have urinary retention or incontinence, fever, chills, or weakness. *What to do: *Please continue to take your regular medications as directed. [x ] New medication prescriptions sent to your pharmacy: [[facility] ] [ ] New medication written as a paper prescription [ ] No new medications given *Please follow up with your primary care provider in 2-3 days, call for an appointment. Let them know you were seen in the Emergency Department and that we asked that you be seen for follow-up. We will electronically transmit a record of today's note if your PCP is in our system *If you do not have a primary care provider please contact [phone] to establish care with one of the [facility] primary care providers. *Return to Emergency Department if you should have any new, worsening, or concerning symptoms, such as [fever greater than 101F, chills, worsening pain, persistent vomiting or other bothersome symptoms]. Prescriptions: New hydrocodone-acetaminophen 5-325 mg tablet 1 tab PO TID PRN (Reason: pain) Qty: 14 0RF methocarbamol 500 mg tablet 500 mg PO Q8H PRN (Reason: muscle spasm/pain) Qty: 20 0RF naproxen 250 mg tablet 250 mg PO BID PRN (Reason: pain) Qty: 20 0RF lidocaine [Lidoderm] 5 % adhesive patch,medicated 1 patch topical DAILY PRN (Reason: pain) Qty: 15 0RF Rx Instructions: leave on most painful area for up to 12 hrs No Action aspirin 81 mg tablet,delayed release (DR/EC) 81 mg PO QDAY Qty: 90 3RF atorvastatin [Lipitor] 20 mg tablet 20 mg PO QAM Qty: 90 3RF candesartan 16 mg tablet 8 mg PO DAILY Qty: 45 3RF glipizide 10 mg tablet extended release 24hr 10 mg PO BID Qty: 180 3RF (DME) Precision Xtra Test Strips Qty: 250 12RF Dose Instruction: As directed Rx Instructions: Use to check blood sugar once daily (DME) blood-glucose meter [Blood Glucose Monitoring] Kit See Rx Instructions .ROUTE .MEDSUPPLY Qty: 1 0RF Rx Instructions: As directed to check glucose three times daily metformin 500 mg tablet extended release 24 hr 1,000 mg PO BID (DME) Disabled Parking Qty: 1 0RF Rx Instructions: Patient qualifies for disabled parking as per the attached form. acetaminophen [Tylenol Extra Strength] 500 mg tablet 500 mg PO Q4H PRN (Reason: pain) Qty: 60 0RF Rx Instructions: take 1 tablet by mouth every 4 hours as needed for pain Referrals: Ama Merlos MD [Physician] - Anupam Wade MD [Primary Care Provider] - Visit Report Forms: Patient Portal/API <Humble Shaver MD - Last Filed: 09/28/22 07:10> Cosign ED Attending Cosignature Attestation: I was immediately available in the department for consultation. ?This documentation has been reviewed and I agree with assessment and plan. Supervised by Humble Shaver MD
[2022-09-27] MEDS: HYDROMORPHONE 0.5 MG INJ IV (12:53)
[2022-09-27] MEDS: KETOROLAC 30 MG/ML VIAL 15 MG IV (12:53)
[2022-09-27] MEDS: LIDOCAINE PATCH 1 EACH ADH..PATCH TOP (12:53)
[2022-09-27] MEDS: methocarbamoL 500 MG TABLET PO (12:54)
[2022-09-27 13:35] LABS: Alanine Aminotransferase 21 IU/L (<50); Albumin 4.7 g/dL (3.5-5.0); Albumin Globulin Ratio 1.3 (1.0-2.8); Alkaline Phosphatase 123 U/L (38-126); Aspartate Aminotransferase 23 IU/L (17-59); BUN Creatinine Ratio 21.6 (6-22); Bilirubin Total 0.6 mg/dL (0.2-1.3); Blood Urea Nitrogen 25 mg/dL (9-20); Calcium 9.2 mg/dL (8.4-10.2); Carbon Dioxide 22 mmol/L (22-32); Chloride 106 mmol/L (98-107); Estimated Glomerular Filt Rate > 60 mL/min (>60); Globulin 3.7 g/dL (1.7-4.1); Glucose 178 mg/dL (80-110); HEMOLYSIS 31 (0-50); Potassium 4.4 mmol/L (3.4-5.1); Sodium 141 mmol/L (137-145); Total Protein 8.4 g/dL (6.3-8.2)
[2022-09-27 13:37] LABS: Hematocrit 36.8 % (41-53); Hemoglobin 12.7 g/dL (13.5-17.5); Mean Corpuscular HGB Conc 34.5 % (30-36); Mean Corpuscular Hemoglobin 30.3 PG (26-34); Mean Corpuscular Volume 87.9 fL (80-100); Platelet Count 234 X10^3/uL (150-400); Red Blood Cell Count 4.18 X10^6/uL (4.5-5.9); Red Cell Distribution Width 13.6 % (11.6-14.8); White Blood Cell Count 8.1 X10^3/uL (4.5-11.0)
[2022-09-27 13:39] VITALS: BP 153/78; PULSE 62; O2SAT 95
[2022-09-27 13:42] LABS: Add Manual Diff / Slide Review YES
[2022-09-27 13:51] LABS: Procalcitonin 0.36 ng/mL (<0.5)
[2022-09-27 13:57] LABS: Neutrophils Absolute Manual 4455 /uL (3000-5900); Platelet Estimate Adequate on smear; RBC Morphology Normal Morphology; Total Cells Counted 100
== END 2022-09-27 13:41 | disposition home or self-care (01) ==
PROVIDERS: Emergency Medicine; Emergency Provider Nurse Practitioner Critical Care Medicine; PCP Internal Medicine
DX: M54.50 Low back pain, unspecified (principal); R10.9 Unspecified abdominal pain
CPT/HCPCS: 72100; 80053; 81001; 84145; 85007; 85025; 87086; 96374; 96375; 99284; J1170; J1885

== ENCOUNTER → 2022-10-06 08:13 | Outpatient (CLI) | payer MEDICARE, OTHER, SELFPAY ==
[2019-08-15 13:36] VITALS: BMI 27.5
[2022-10-07 15:46] LABS: Hemoglobin A1C% w Est Avg Glu 8.4 % (4.0-6.0)
[2022-10-07 17:23] LABS: Alanine Aminotransferase 18 IU/L (<50); Albumin 4.2 g/dL (3.5-5.0); Albumin Globulin Ratio 1.4 (1.0-2.8); Alkaline Phosphatase 136 U/L (38-126); Aspartate Aminotransferase 15 IU/L (17-59); Bilirubin Total 0.5 mg/dL (0.2-1.3); Blood Urea Nitrogen 29 mg/dL (9-20); Calcium 9.4 mg/dL (8.4-10.2); Carbon Dioxide 23 mmol/L (22-32); Chloride 104 mmol/L (98-107); Cholesterol 64 mg/dL (140-199); Estimated Glomerular Filt Rate 49 mL/min (>60); Globulin 2.9 g/dL (1.7-4.1); Glucose 129 mg/dL (80-110); HDL Cholesterol 17 mg/dL (40-60); HEMOLYSIS < 15 (0-50); LDL Cholesterol Calculated 7 mg/dL (<100); Potassium 4.9 mmol/L (3.4-5.1); Sodium 140 mmol/L (137-145); Total Protein 7.1 g/dL (6.3-8.2); Triglycerides 200 mg/dL (35-150)
[2022-10-07 17:54] LABS: Prostate Specific Antigen Scrn 4.47 ng/mL (0.1-4.0)
== END ==
PROVIDERS: PCP Internal Medicine; Referring Provider Internal Medicine; Visit Provider Internal Medicine
DX: E11.65 Type 2 diabetes mellitus with hyperglycemia (principal); Z12.5 Encounter for screening for malignant neoplasm of prostate; E78.2 Mixed hyperlipidemia; I10 Essential (primary) hypertension; N18.31 Chronic kidney disease, stage 3a
CPT/HCPCS: 36415; 80053; 80061; 83036; G0103

== ENCOUNTER → 2022-10-23 12:28 | Outpatient (CLI) | payer MEDICARE, OTHER, SELFPAY ==
[2019-08-15 13:36] VITALS: BMI 27.5
--- NOTE | 2022-10-23 12:32 | DI.US.S_ITS ---
PROCEDURE: US SCROTUM INDICATIONS: Left inguinal pain TECHNIQUE: Real-time scanning was performed of the scrotum and testicles, with image documentation. Color and pulse Doppler interrogation was performed of both testicles. COMPARISON: None. FINDINGS: Right: Testicle is normal in size at 3.6 x 2.4 x 2.8 cm, and homogenous in echotexture. Epididymis is normal in overall size and morphology. 8 mm epididymal cyst No hydrocele or varicoceles. Overlying scrotal skin is normal in thickness. Left: Testicle is normal in size at 3.3 x 1.8 x 3.0 cm, and homogeneous in echotexture. Epididymis is normal in overall size and morphology. No hydrocele or varicoceles. Overlying scrotal skin is normal in thickness. No left inguinal hernia. Doppler: Color and pulse Doppler demonstrate normal and symmetric arterial flow in both testicles. IMPRESSION: 1. Normal appearance of the testicles bilaterally. 2. Subcentimeter right epididymal cyst. 3. No left inguinal hernia. Dictated by: Supa COHN Interpreted: Hector Finch MD on 10/23/2022 at 14:34 Transcribed by: NADYA on 10/23/2022 at 14:35 Approved by: Hector Finch M.D. on 10/23/2022 at 14:41
--- NOTE | 2022-10-23 12:46 | DI.MRI.S_ITS ---
PROCEDURE: MR LUMBAR SPINE WO CON INDICATIONS: Low back pain with radicular pain TECHNIQUE: Noncontrast sagittal T1 spin echo and T2 fast echo, sagittal STIR, and T2 fast spin echo through the lumbar spine. In cases with scoliosis, additional coronal T2 fast spin echo may be performed. COMPARISON: [facility], MR, MR LUMBAR SPINE WO CON, 06/08/2019, 13:28. FINDINGS: Image quality: Excellent. Alignment and Curvature: There is normal bony alignment. Bone Marrow: L4-5 and L5-S1 discectomy and fusion with associated posterior ingris and screw instrumentation present. Spinal Cord: Conus medullaris terminates at the L1 level. Visualized cord demonstrates normal signal and size. Paraspinous Soft Tissues: No paravertebral masses. T12-L1: Normal appearance. L1-L2: Mild disc space narrowing. There is a broad-based focal disc protrusion fills the left lateral recess and extends into the left neural foramen resulting in severe left foraminal stenosis and complete lateral recess effacement. Protrusion measures 6 mm in thickness. Mild central and no right foraminal stenosis L2-L3: Mild disc space narrowing. Circumferential disc bulge with mild central stenosis. Mild bilateral foraminal stenosis L3-L4: Disc space narrowing with circumferential disc bulge and hypertrophic facet joints results in moderate central stenosis. Moderate bilateral foraminal stenosis is greater on the right. L4-L5: Discectomy and fusion. No central stenosis present. Left hemilaminectomy. Arthropathy results in moderate bilateral foraminal stenosis greater on the right. L5-S1: Discectomy and fusion. No central stenosis present. Hypertrophic facet joints associated with moderate to severe left and mild right foraminal stenosis IMPRESSION: 1. Large broad-based disc protrusion at L1-2 fills the left lateral recess and results in severe left foraminal stenosis 2. L4-5 and L5-S1 instrumented discectomy and fusion with persistent moderate bilateral foraminal stenosis Approved by: Arley Valencia M.D. on 10/23/2022 at 15:18
== END ==
PROVIDERS: PCP Student in an Organized Health Care Education/Training Program; Referring Provider Orthopaedic Surgery Orthopaedic Surgery of the Spine; Visit Provider Orthopaedic Surgery Orthopaedic Surgery of the Spine
DX: M48.062 Spinal stenosis, lumbar region with neurogenic claudication (principal); M48.07 Spinal stenosis, lumbosacral region; M51.16 Intervertebral disc disorders with radiculopathy, lumbar region; N50.3 Cyst of epididymis; R10.32 Left lower quadrant pain; Z98.1 Arthrodesis status
CPT/HCPCS: 72148; 76870

== ENCOUNTER → 2023-02-23 07:00 | Outpatient (CLI) | payer MEDICARE, OTHER, SELFPAY ==
[2019-08-15 13:36] VITALS: BMI 27.5
[2023-02-23 07:57] LABS: Alanine Aminotransferase 19 IU/L (<50); Albumin 4.3 g/dL (3.5-5.0); Albumin Globulin Ratio 1.4 (1.0-2.8); Alkaline Phosphatase 100 U/L (38-126); Aspartate Aminotransferase 19 IU/L (17-59); BUN Creatinine Ratio 22.6 (6-22); Bilirubin Total 0.3 mg/dL (0.2-1.3); Blood Urea Nitrogen 30 mg/dL (9-20); Calcium 8.7 mg/dL (8.4-10.2); Carbon Dioxide 26 mmol/L (22-32); Chloride 105 mmol/L (98-107); Estimated Glomerular Filt Rate 58 mL/min (>60); Glucose 120 mg/dL (80-110); HEMOLYSIS < 15 (0-50); Potassium 4.5 mmol/L (3.4-5.1); Sodium 141 mmol/L (137-145); Total Protein 7.3 g/dL (6.3-8.2)
[2023-02-24 08:37] LABS: x Labcorp Estim. Avg Glu (eAG) 180 mg/dL (.); x Labcorp Hemoglobin A1c 7.9 % (4.8-5.6)
[2023-02-25 09:36] LABS: PSA Free % 35.6 % (.); PSA, Total 3.2 ng/mL (0.0-4.0)
== END ==
PROVIDERS: PCP Internal Medicine; Referring Provider Internal Medicine; Visit Provider Internal Medicine
DX: R97.20 Elevated prostate specific antigen [PSA] (principal); N18.31 Chronic kidney disease, stage 3a; E11.65 Type 2 diabetes mellitus with hyperglycemia
CPT/HCPCS: 36415; 80053; 83036; 84153; 84154

== ENCOUNTER → 2023-05-25 06:55 | Outpatient (CLI) | payer MEDICARE, OTHER, SELFPAY ==
[2019-08-15 13:36] VITALS: BMI 27.5
[2023-05-25 07:42] LABS: BUN Creatinine Ratio 25.7 (6-22); Blood Urea Nitrogen 37 mg/dL (9-20); Calcium 9.1 mg/dL (8.4-10.2); Carbon Dioxide 24 mmol/L (22-32); Chloride 107 mmol/L (98-107); Estimated Glomerular Filt Rate 52 mL/min (>60); Glucose 108 mg/dL (80-110); HEMOLYSIS < 15 (0-50); Potassium 4.5 mmol/L (3.4-5.1); Sodium 140 mmol/L (137-145)
[2023-05-26 05:50] LABS: x Labcorp Estim. Avg Glu (eAG) 200 mg/dL (.); x Labcorp Hemoglobin A1c 8.6 % (4.8-5.6)
== END ==
PROVIDERS: PCP Internal Medicine; Referring Provider Internal Medicine; Visit Provider Internal Medicine
DX: I10 Essential (primary) hypertension (principal); E11.65 Type 2 diabetes mellitus with hyperglycemia
CPT/HCPCS: 36415; 80048; 83036

== ENCOUNTER → 2023-08-19 06:59 | Outpatient (CLI) | payer MEDICARE, OTHER, SELFPAY ==
[2023-05-25 11:30] VITALS: BMI 27.5
[2023-08-19 09:45] LABS: Hemoglobin A1C% w Est Avg Glu 7.5 % (4.0-6.0)
[2023-08-19 09:53] LABS: Alanine Aminotransferase 17 IU/L (<50); Albumin 4.2 g/dL (3.5-5.0); Albumin Globulin Ratio 1.5 (1.0-2.8); Alkaline Phosphatase 80 U/L (38-126); Aspartate Aminotransferase 16 IU/L (17-59); BUN Creatinine Ratio 28.1 (6-22); Bilirubin Total 0.3 mg/dL (0.2-1.3); Blood Urea Nitrogen 39 mg/dL (9-20); Calcium 9.8 mg/dL (8.4-10.2); Carbon Dioxide 25 mmol/L (22-32); Chloride 106 mmol/L (98-107); Cholesterol 99 mg/dL (140-199); Estimated Glomerular Filt Rate 54 mL/min (>60); Globulin 2.8 g/dL (1.7-4.1); Glucose 87 mg/dL (80-110); HDL Cholesterol 29 mg/dL (40-60); HEMOLYSIS < 15 (0-50); LDL Cholesterol Calculated 39 mg/dL (<100); Potassium 4.5 mmol/L (3.4-5.1); Sodium 140 mmol/L (137-145); Triglycerides 155 mg/dL (35-150)
== END ==
PROVIDERS: PCP Internal Medicine; Referring Provider Internal Medicine; Visit Provider Internal Medicine
DX: E11.65 Type 2 diabetes mellitus with hyperglycemia (principal); N18.31 Chronic kidney disease, stage 3a; I10 Essential (primary) hypertension; E78.5 Hyperlipidemia, unspecified
CPT/HCPCS: 36415; 80053; 80061; 83036

== ENCOUNTER → 2023-11-18 07:12 | Outpatient (CLI) | payer MEDICARE, OTHER, SELFPAY ==
[2023-05-25 11:30] VITALS: BMI 27.5
[2023-11-18 08:08] LABS: BUN Creatinine Ratio 25.7 (6-22); Blood Urea Nitrogen 37 mg/dL (9-20); Calcium 9.8 mg/dL (8.4-10.2); Carbon Dioxide 27 mmol/L (22-32); Chloride 104 mmol/L (98-107); Estimated Glomerular Filt Rate 52 mL/min (>60); Glucose 101 mg/dL (80-110); HEMOLYSIS < 15 (0-50); Potassium 4.6 mmol/L (3.4-5.1); Sodium 140 mmol/L (137-145)
[2023-11-18 08:10] LABS: Hemoglobin A1C% w Est Avg Glu 7.9 % (4.0-6.0)
[2023-11-18 08:36] LABS: Creatinine Urine Random 102.2 mg/dL
[2023-11-18 08:39] LABS: Microalbumi Creatinin Ratio Ur 125.2 ug/mg CR (<30); Microalbumin Urine Random 12.8 mg/dL (0-1.6)
== END ==
PROVIDERS: PCP Internal Medicine; Referring Provider Internal Medicine; Visit Provider Internal Medicine
DX: E11.9 Type 2 diabetes mellitus without complications (principal); N18.31 Chronic kidney disease, stage 3a; I10 Essential (primary) hypertension
CPT/HCPCS: 36415; 80048; 82043; 82570; 83036

== ENCOUNTER → 2024-02-19 07:06 | Outpatient (CLI) | payer MEDICARE, OTHER, SELFPAY ==
[2023-05-25 11:30] VITALS: BMI 27.5
[2024-02-19 08:01] LABS: Alanine Aminotransferase 17 IU/L (<50); Albumin 4.4 g/dL (3.5-5.0); Albumin Globulin Ratio 1.6 (1.0-2.8); Alkaline Phosphatase 90 U/L (38-126); Aspartate Aminotransferase 17 IU/L (17-59); BUN Creatinine Ratio 24.8 (6-22); Bilirubin Total 0.5 mg/dL (0.2-1.3); Blood Urea Nitrogen 38 mg/dL (9-20); Calcium 9.5 mg/dL (8.4-10.2); Carbon Dioxide 28 mmol/L (22-32); Chloride 110 mmol/L (98-107); Cholesterol 93 mg/dL (140-199); Estimated Glomerular Filt Rate 48 mL/min (>60); Globulin 2.7 g/dL (1.7-4.1); Glucose 117 mg/dL (80-110); HDL Cholesterol 27 mg/dL (40-60); HEMOLYSIS < 15 (0-50); LDL Cholesterol Calculated 26 mg/dL (<100); Potassium 4.8 mmol/L (3.4-5.1); Sodium 143 mmol/L (137-145); Total Protein 7.1 g/dL (6.3-8.2); Triglycerides 199 mg/dL (35-150)
== END ==
PROVIDERS: PCP Internal Medicine; Referring Provider Internal Medicine; Visit Provider Internal Medicine
DX: E11.65 Type 2 diabetes mellitus with hyperglycemia (principal); N18.31 Chronic kidney disease, stage 3a; I10 Essential (primary) hypertension; E78.5 Hyperlipidemia, unspecified
CPT/HCPCS: 36415; 80053; 80061; 83036

== ENCOUNTER → 2024-05-24 07:00 | Outpatient (CLI) | payer MEDICARE, OTHER, SELFPAY ==
[2023-05-25 11:30] VITALS: BMI 27.5
[2024-05-24 08:13] LABS: Hemoglobin A1C% w Est Avg Glu 7.2 % (4.0-6.0)
[2024-05-24 09:05] LABS: Alanine Aminotransferase 15 IU/L (<50); Albumin 4.1 g/dL (3.5-5.0); Albumin Globulin Ratio 1.6 (1.0-2.8); Alkaline Phosphatase 105 U/L (38-126); Aspartate Aminotransferase 16 IU/L (17-59); BUN Creatinine Ratio 20.4 (6-22); Bilirubin Total 0.5 mg/dL (0.2-1.3); Blood Urea Nitrogen 31 mg/dL (9-20); Calcium 8.9 mg/dL (8.4-10.2); Carbon Dioxide 23 mmol/L (22-32); Chloride 108 mmol/L (98-107); Cholesterol 87 mg/dL (140-199); Estimated Glomerular Filt Rate 49 mL/min (>60); Globulin 2.6 g/dL (1.7-4.1); Glucose 135 mg/dL (80-110); HDL Cholesterol 22 mg/dL (40-60); HEMOLYSIS < 15 (0-50); LDL Cholesterol Calculated 22 mg/dL (<100); Sodium 140 mmol/L (137-145); Total Protein 6.7 g/dL (6.3-8.2); Triglycerides 217 mg/dL (35-150)
== END ==
PROVIDERS: PCP Internal Medicine; Referring Provider Internal Medicine; Visit Provider Internal Medicine
DX: E11.65 Type 2 diabetes mellitus with hyperglycemia (principal); I10 Essential (primary) hypertension; E11.21 Type 2 diabetes mellitus with diabetic nephropathy; E78.5 Hyperlipidemia, unspecified
CPT/HCPCS: 36415; 80053; 80061; 83036

== ENCOUNTER → 2025-02-21 07:22 | Outpatient (CLI) | payer MEDICARE, OTHER, SELFPAY ==
[2023-05-25 11:30] VITALS: BMI 27.5
[2025-02-21 07:56] LABS: Hemoglobin A1C% w Est Avg Glu 6.7 % (4.0-6.0)
[2025-02-21 08:15] LABS: Alanine Aminotransferase 18 IU/L (<50); Albumin 4.3 g/dL (3.5-5.0); Albumin Globulin Ratio 1.6 (1.0-2.8); Alkaline Phosphatase 110 U/L (38-126); Aspartate Aminotransferase 19 IU/L (17-59); BUN Creatinine Ratio 20.5 (6-22); Bilirubin Total 0.4 mg/dL (0.2-1.3); Blood Urea Nitrogen 30 mg/dL (9-20); Calcium 9.1 mg/dL (8.4-10.2); Carbon Dioxide 23 mmol/L (22-32); Chloride 110 mmol/L (98-107); Cholesterol 95 mg/dL (140-199); Estimated Glomerular Filt Rate 51 mL/min (>60); Globulin 2.7 g/dL (1.7-4.1); Glucose 94 mg/dL (80-110); HEMOLYSIS 17 (0-50); Potassium 4.7 mmol/L (3.4-5.1); Sodium 141 mmol/L (137-145); Triglycerides 212 mg/dL (35-150)
[2025-02-21 08:41] LABS: Creatinine Urine Random 105.89 mg/dL
[2025-02-21 08:47] LABS: Microalbumin Urine Random 10.7 mg/dL (0-1.6)
[2025-02-21 08:56] LABS: HDL Cholesterol 23 mg/dL (40-60); LDL Cholesterol Calculated 30 mg/dL (<100)
== END ==
PROVIDERS: PCP Internal Medicine; Referring Provider Internal Medicine; Visit Provider Internal Medicine
DX: E11.9 Type 2 diabetes mellitus without complications (principal); I10 Essential (primary) hypertension; E78.2 Mixed hyperlipidemia
CPT/HCPCS: 36415; 80053; 80061; 82043; 82570; 83036

== ENCOUNTER → 2025-08-31 07:22 | Outpatient (CLI) | payer MEDICARE, OTHER, SELFPAY ==
[2023-05-25 11:30] VITALS: BMI 27.5
[2025-08-31 08:49] LABS: Alanine Aminotransferase 15 IU/L (<50); Albumin 4.4 g/dL (3.5-5.0); Albumin Globulin Ratio 1.6 (1.0-2.8); Alkaline Phosphatase 113 U/L (38-126); Blood Urea Nitrogen 30 mg/dL (9-20); Calcium 9.5 mg/dL (8.4-10.2); Carbon Dioxide 24 mmol/L (22-32); Chloride 106 mmol/L (98-107); Cholesterol 102 mg/dL (140-199); Estimated Glomerular Filt Rate 46 mL/min (>60); Globulin 2.8 g/dL (1.7-4.1); Glucose 157 mg/dL (70-99); HDL Cholesterol 25 mg/dL (40-60); HEMOLYSIS < 15 (0-50); Potassium 4.9 mmol/L (3.4-5.1); Sodium 139 mmol/L (137-145); Total Protein 7.2 g/dL (6.3-8.2); Triglycerides 305 mg/dL (35-150)
[2025-08-31 10:29] LABS: Hemoglobin A1C% w Est Avg Glu 7.6 % (4.0-6.0)
== END ==
PROVIDERS: PCP Internal Medicine; Referring Provider Internal Medicine; Visit Provider Internal Medicine
DX: E11.21 Type 2 diabetes mellitus with diabetic nephropathy (principal); I10 Essential (primary) hypertension
CPT/HCPCS: 36415; 80053; 80061; 83036